=== PATIENT | male | born 1970 | race Caucasian/White ===

== ENCOUNTER 2016-07-19 20:21 | Inpatient (IN) | payer BC, OTHER ==
--- NOTE | 2016-07-19 21:28 | XR ---
EXAMINATION TYPE: XR chest 2V DATE OF EXAM: 07/19/2016 9:23 PM COMPARISON: 09/04/2015 HISTORY: Chest pain TECHNIQUE: Frontal and lateral views of the chest are obtained. FINDINGS: Heart and mediastinum are normal. Lungs are clear. Diaphragm is normal. There are chest le ads. IMPRESSION: Normal chest. No change.
[2016-07-19 21:41] LABS: ALT 55 U/L (21-72); AST 48 U/L (17-59); Alkaline Phosphatase 90 U/L (38-126); Anion Gap 13 mmol/L; Blood Urea Nitrogen 17 mg/dL (9-20); Calcium 9.5 mg/dL (8.4-10.2); Carbon Dioxide 23 mmol/L (22-30); Chloride 103 mmol/L (98-107); Glucose 99 mg/dL (74-99); Magnesium 2.2 mg/dL (1.6-2.3); Non-African American GFR(MDRD) >60 (>60 ml/min/1.73 sqM); Sodium 139 mmol/L (137-145); Total Bilirubin 1.6 mg/dL (0.2-1.3); Total Protein 7.5 g/dL (6.3-8.2)
[2016-07-19 21:42] LABS: Potassium 4.9 mmol/L (3.5-5.1)
[2016-07-19 21:46] LABS: Basophils % (A) 0 %; CH 34.8; CHCM 36.1; Eosinophils # (A) 0.1 k/uL (0-0.7); Eosinophils % (A) 2 %; HGB 15.8 gm/dL (13.0-17.5); Luc # (Auto) 0.06; Luc % (Auto) 1; Lymphocytes # (A) 1.6 k/uL (1.0-4.8); Lymphocytes % (A) 35 %; MCH 33.2 pg (25.0-35.0); MCHC 34.3 g/dL (31.0-37.0); MCV 96.7 fL (80.0-100.0); Mean Platelet Volume 8.2; Monocytes # (A) 0.3 k/uL (0-1.0); Monocytes % (A) 7 %; Neutrophils # (A) 2.5 k/uL (1.3-7.7); Neutrophils % (A) 55 %; RBC 4.76 m/uL (4.30-5.90); RDW 12.5 % (11.5-15.5); WBC 4.6 k/uL (3.8-10.6)
[2016-07-19 22:12] LABS: Creatine Kinase 126 U/L (55-170)
[2016-07-19 22:23] LABS: Creatine Kinase MB 0.6 ng/mL (0.0-2.4); Troponin I <0.012 ng/mL (0.000-0.034)
[2016-07-19 22:35] LABS: INR 1.1 (<1.1); Partial Thromboplastin Time 22.3 sec (22.0-30.0)
[2016-07-19] MEDS ORDERED: ASPIRIN 81 MG CHEW PO STA (22:45)
[2016-07-19] MEDS ORDERED: HEPARIN SODIUM,PORCINE 5,000 UNIT/ML 1 ML VIAL IV PRN ×2 (22:45→23:26)
[2016-07-19] MEDS ORDERED: HEPARIN SODIUM,PORCINE 5,000 UNIT/ML 1 ML VIAL IV ONE (22:45)
[2016-07-19] MEDS ORDERED: MORPHINE SULFATE 4 MG/ML SYRINGE IV PRN (22:45)
[2016-07-19] MEDS ORDERED: NITROGLYCERIN SL TABS 0.4 MG TAB SUBLINGUAL PRN (22:45)
--- NOTE | 2016-07-19 22:45 | ED ---
General Adult HPI - General Chief complaint: Chest Pain Stated complaint: Chest pain Time Seen by Provider: 07/19/16 21:34 Source: patient, RN notes reviewed, old records reviewed Mode of arrival: wheelchair Limitations: no limitations - History of Present Illness Initial comments: This is a 46-year-old male the ER for reevaluation chest pain. Patient has anterior chest pain with significant shortness of breath, heaviness. Patient's that he does have history of cardiac disease CAD with stents. Patient recently stopped taking Plavix. Patient did see his cardiology doctor within the last year. I did have stress test which he thinks is unremarkable. Patient denies chest pain cough or congestion. At this time. Patient's initial chest pain did have shortness of breath and diaphoresis, clamminess associated with it. Patient denies modifying factors for the symptoms that he had. Patient has taken nitro in the past for chest pain but did not a temperature today. Patient admits no travel history, no sick contacts, no recent hospitalizations - Related Data Home Medications Medication Instructions Recorded Confirmed traMADol HCL [Ultram] 50 mg PO BID 03/03/15 09/05/15 Aspirin EC [Ecotrin] 325 mg PO HS 09/04/15 09/05/15 Clopidogrel Bisulfate [Clopidogrel] 75 mg PO DAILY 09/04/15 09/05/15 Metoprolol Tartrate [Lopressor] 25 mg PO BID 09/04/15 09/05/15 Pantoprazole [Protonix] 40 mg PO DAILY 09/04/15 09/05/15 Atorvastatin [Lipitor] 80 mg PO HS 09/05/15 09/05/15 Cider Vinegar [Apple Cider Vinegar] 300 mg PO DAILY 09/05/15 09/05/15 Cinnamon Bark [Cinnamon] 500 mg PO DAILY 09/05/15 09/05/15 Cod Liver Oil 1 cap PO DAILY 09/05/15 09/05/15 Lisinopril [Zestril] 2.5 mg PO DAILY 09/05/15 09/05/15 Previous Rx's Medication Instructions Recorded Nitroglycerin Sl Tabs [Nitrostat] 0.4 mg SUBLINGUAL Q5M PRN #20 tab 03/05/15 Allergies Allergy/AdvReac Type Severity Reaction Status Date / Time No Known Allergies Allergy Verified 07/19/16 20:26 Review of Systems ROS Statement: Those systems with pertinent positive or pertinent negative responses have been documented in the HPI. ROS Other: All systems not noted in ROS Statement are negative. Past Medical History Past Medical History: Coronary Artery Disease (CAD), Myocardial Infarction (DE) , Rheumatoid Arthritis (RA) Additional Past Medical History / Comment(s): PEPTIC ULCERS Has partially torn meniscus in both knees Last Myocardial Infarction Date:: 03/03/15 History of Any Multi-Drug Resistant Organisms: None Reported Past Surgical History: Heart Catheterization With Stent Additional Past Surgical History / Comment(s): pastSTENT X2 and 03-16-15 had cath with had 3 stents to om and 1 stent to ramis. Past Anesthesia/Blood Transfusion Reactions: No Reported Reaction Date of Last Stent Placement:: 03/03/15 Past Psychological History: No Psychological Hx Reported Additional Psychological History / Comment(s): MILD DEPRESSION OVER RECENT MED PROBLEMS. 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 Smoking Status: Former smoker Past Alcohol Use History: Occasional Additional Past Alcohol Use History / Comment(s): started smoking at age 17 smoked 1ppd, quit -2014 Past Drug Use History: None Reported - Past Family History Father History Unknown: Yes Family Medical History: Coronary Artery Disease (CAD) Additional Family Medical History / Comment(s): DE AT AGE 27 Mother Family Medical History: Diabetes Mellitus General Exam Limitations: no limitations General appearance: alert, in no apparent distress, anxious Head exam: Present: atraumatic, normocephalic, normal inspection Eye exam: Present: normal appearance, PERRL, EOMI. Absent: scleral icterus, conjunctival injection, periorbital swelling ENT exam: Present: normal exam, mucous membranes moist Neck exam: Present: normal inspection. Absent: tenderness, meningismus, lymphadenopathy Respiratory exam: Present: normal lung sounds bilaterally. Absent: respiratory distress, wheezes, rales, rhonchi, stridor Cardiovascular Exam: Present: regular rate, normal rhythm, normal heart sounds. Absent: systolic murmur, diastolic murmur, rubs, gallop, clicks GI/Abdominal exam: Present: soft, normal bowel sounds. Absent: distended, tenderness, guarding, rebound, rigid Extremities exam: Present: normal inspection, full ROM, normal capillary refill. Absent: tenderness, pedal edema, joint swelling, calf tenderness Back exam: Present: normal inspection Neurological exam: Present: alert, oriented X3, CN II-XII intact Psychiatric exam: Present: normal affect, normal mood Skin exam: Present: warm, dry, intact, normal color. Absent: rash Course Vital Signs 07/19/16 07/19/16 07/19/16 20:24 20:30 22:00 Temperature 98.3 F Pulse Rate 70 65 Pulse Rate [ 78 [employer] Professional ] Respiratory 18 20 20 Rate Blood Pressure 141/94 148/82 O2 Sat by Pulse 98 95 Oximetry 07/19/16 22:23 Temperature Pulse Rate 76 Pulse Rate [ [employer] Professional ] Respiratory 18 Rate Blood Pressure 130/81 O2 Sat by Pulse 98 Oximetry - Reevaluation(s) Reevaluation #1: 07/19/16 22:43 Patient's diaphoresis and chest pain has subsided EKG Findings - EKG Comments: EKG Findings:: EKG shows normal sinus rate of 73, LA 152, QRS 90, QTC 403 Medical Decision Making - Medical Decision Making 46 male to the ER for chest pain, history of stents, diffuse status place the last 2 years. Patient did have associated shortness of breath with diaphoresis. No recent cardiac evaluation. Patient will be admitted for cardiac observation. Patient recently taken off Plavix, taking a little other medications as prescribed. Currently without chest pain, patient will be admitted for cardiac observation and initial EKG shows no ST elevation, patient will have serial troponins - Lab Data Result diagrams: 07/19/16 21:15 07/19/16 21:15 Lab Results 07/19/16 07/19/16 07/19/16 Range/Units 21:15 21:15 21:15 WBC 4.6 (3.8-10.6) k/uL RBC 4.76 (4.30-5.90) m/uL Hgb 15.8 (13.0-17.5) gm/dL Hct 46.0 (39.0-53.0) % MCV 96.7 (80.0-100.0) fL MCH 33.2 (25.0-35.0) pg MCHC 34.3 (31.0-37.0) g/dL RDW 12.5 (11.5-15.5) % Plt Count 106 L (150-450) k/uL Neutrophils % 55 % Lymphocytes % 35 % Monocytes % 7 % Eosinophils % 2 % Basophils % 0 % Neutrophils # 2.5 (1.3-7.7) k/uL Lymphocytes # 1.6 (1.0-4.8) k/uL Monocytes # 0.3 (0-1.0) k/uL Eosinophils # 0.1 (0-0.7) k/uL Basophils # 0.0 (0-0.2) k/uL PT (9.0-12.0) sec INR (<1.1) APTT (22.0-30.0) sec Sodium 139 (137-145) mmol/L Potassium 4.9 (3.5-5.1) mmol/L Chloride 103 (98-107) mmol/L Carbon Dioxide 23 (22-30) mmol/L Anion Gap 13 mmol/L BUN 17 (9-20) mg/dL Creatinine 0.77 (0.66-1.25) mg/dL Est GFR (MDRD) Af Amer >60 (>60 ml/min/1.73 sqM) Est GFR (MDRD) Non-Af >60 (>60 ml/min/1.73 sqM) Glucose 99 (74-99) mg/dL Calcium 9.5 (8.4-10.2) mg/dL Magnesium 2.2 (1.6-2.3) mg/dL Total Bilirubin 1.6 H (0.2-1.3) mg/dL AST 48 (17-59) U/L ALT 55 (21-72) U/L Alkaline Phosphatase 90 (38-126) U/L Total Creatine Kinase 126 (55-170) U/L CK-MB (CK-2) 0.6 (0.0-2.4) ng/mL CK-MB (CK-2) Rel Index 0.5 Troponin I <0.012 (0.000-0.034) ng/mL Total Protein 7.5 (6.3-8.2) g/dL Albumin 4.7 (3.5-5.0) g/dL 07/19/16 Range/Units 21:15 WBC (3.8-10.6) k/uL RBC (4.30-5.90) m/uL Hgb (13.0-17.5) gm/dL Hct (39.0-53.0) % MCV (80.0-100.0) fL MCH (25.0-35.0) pg MCHC (31.0-37.0) g/dL RDW (11.5-15.5) % Plt Count (150-450) k/uL Neutrophils % % Lymphocytes % % Monocytes % % Eosinophils % % Basophils % % Neutrophils # (1.3-7.7) k/uL Lymphocytes # (1.0-4.8) k/uL Monocytes # (0-1.0) k/uL Eosinophils # (0-0.7) k/uL Basophils # (0-0.2) k/uL PT 11.0 (9.0-12.0) sec INR 1.1 (<1.1) APTT 22.3 (22.0-30.0) sec Sodium (137-145) mmol/L Potassium (3.5-5.1) mmol/L Chloride (98-107) mmol/L Carbon Dioxide (22-30) mmol/L Anion Gap mmol/L BUN (9-20) mg/dL Creatinine (0.66-1.25) mg/dL Est GFR (MDRD) Af Amer (>60 ml/min/1.73 sqM) Est GFR (MDRD) Non-Af (>60 ml/min/1.73 sqM) Glucose (74-99) mg/dL Calcium (8.4-10.2) mg/dL Magnesium (1.6-2.3) mg/dL Total Bilirubin (0.2-1.3) mg/dL AST (17-59) U/L ALT (21-72) U/L Alkaline Phosphatase (38-126) U/L Total Creatine Kinase (55-170) U/L CK-MB (CK-2) (0.0-2.4) ng/mL CK-MB (CK-2) Rel Index Troponin I (0.000-0.034) ng/mL Total Protein (6.3-8.2) g/dL Albumin (3.5-5.0) g/dL - Radiology Data Radiology results: report reviewed (Chest x-ray negative for acute disease), image reviewed Critical Care Time Critical Care Time: Yes Total Critical Care Time: 31 Disposition Clinical Impression: Chest pain, Unstable angina pectoris Disposition: ADMITTED IP TO THIS HOSP Condition: Undetermined Referrals: Kamron Patel DO [Primary Care Provider] - 1-2 days
[2016-07-19] MEDS: HEPARIN SODIUM,PORCINE/D5W PMX 25,000 UNIT in DEXTROSE/WATER 1 500ML.BAG IV SCH (23:32)
[2016-07-20 01:11] VITALS: BMI 30.4
[2016-07-20 03:49] LABS: Creatine Kinase 82 U/L (55-170)
[2016-07-20 04:01] LABS: Creatine Kinase MB 0.5 ng/mL (0.0-2.4); Troponin I <0.012 ng/mL (0.000-0.034)
[2016-07-20 07:46] LABS: Cholesterol 118 mg/dL (<200); HDL Cholesterol 47 mg/dL (40-60); Triglycerides 105 mg/dL (<150)
[2016-07-20] MEDS ORDERED: ATORVASTATIN 80 MG TAB PO SCH (09:00)
[2016-07-20] MEDS ORDERED: NITROGLYCERIN SL TABS 0.4 MG TAB SUBLINGUAL PRN (09:03)
[2016-07-20] MEDS ORDERED: SODIUM CHLORIDE 0.9% 1,000 ML in EMPTY BAG 1 BAG IV ONE (09:03)
[2016-07-20] MEDS ORDERED: ALPRAZolam 0.25 MG TAB PO PRN (09:03)
[2016-07-20] MEDS ORDERED: ALPRAZolam 0.5 MG TAB PO PRN (09:03)
[2016-07-20] MEDS ORDERED: ASPIRIN 325 MG TAB PO STA (09:06)
[2016-07-20] MEDS ORDERED: ATORVASTATIN 80 MG TAB PO STA (09:06)
[2016-07-20] MEDS ORDERED: traMADol 50 MG TAB PO PRN (09:10)
[2016-07-20] MEDS ORDERED: NON-FORMULARY DRUG (Aspirin Ec 325 MG) PO SCH (09:15)
[2016-07-20] MEDS: LISINOPRIL 2.5 MG TAB PO SCH (10:14)
[2016-07-20] MEDS: METOPROLOL TARTRATE 12.5 MG TAB PO SCH ×2 (10:14→20:34)
[2016-07-20] MEDS: PANTOPRAZOLE 40 MG TABLET PO SCH (10:14)
[2016-07-20] MEDS: ASPIRIN 325 MG TAB PO SCH (10:14)
[2016-07-20 10:27] LABS: Creatine Kinase 75 U/L (55-170)
[2016-07-20 10:41] LABS: Creatine Kinase MB 0.5 ng/mL (0.0-2.4); Troponin I <0.012 ng/mL (0.000-0.034)
--- NOTE | 2016-07-20 10:55 | CONS ---
DATE OF CONSULTATION: CHIEF COMPLAINT: Chest pain. Antonio is a 46-year-old gentleman with a history of coronary artery disease, status post multivessel angioplasty, including right coronary artery, ramus intermedius and circumflex coronary artery who presented to the hospital complaining of chest pain. He describes it as a precordial chest pressure, moderate intensity with radiation to his back and left arm. It was associated with diaphoresis and palpitations. He was concerned and came into hospital. His EKG does not reveal ischemic changes. Rhythm strip shows sinus rhythm. Two sets of cardiac enzymes have been negative so far. Given his known multivessel coronary artery disease and symptomatology suggestive of unstable angina, I advised the patient to undergo cardiac catheterization. He had been explained of risks, benefits, and alternatives, understood and accepted. Past medical history is significant for coronary artery disease, status post angioplasty, hypertension, and dyslipidemia. Medications at home include Lipitor 80 daily, aspirin, Zestril 2.5 daily, metoprolol 12.5 b.i.d., Protonix and Ultram. ALLERGIES: Denies any. FAMILY HISTORY: Negative for premature coronary artery disease. SOCIAL HISTORY: Negative for current smoking, EtOH abuse, or drug abuse. REVIEW OF SYSTEMS: HEENT: Unremarkable. CARDIAC: As described above. RESPIRATORY: Negative. GI: Negative. GENITOURINARY: Negative. ALLERGY/IMMUNOLOGY: Negative. MUSCULOSKELETAL: Significant for arthritis. PSYCHOSOCIAL: Negative. ENDOCRINE: Negative. DERM: Negative. CONSTITUTIONAL: Negative. ONCOLOGICAL: Negative. The rest of the system review is not relevant. On exam, comfortable at rest. Vital signs are stable. There is no jugular venous distention. Carotid upstroke is normal. There is no bruit. Chest exam reveals good air entry bilaterally. Heart exam reveals first and second heart sounds. No gallop. Abdomen is soft. Exam of the extremities did not reveal any edema. Peripheral pulses are felt. EKG shows sinus rhythm, normal axis, normal intervals. Cardiac enzymes have been negative. Labs show that the troponins are negative. LDL cholesterol is 50. ASSESSMENT: Unstable angina in a patient with known coronary artery disease, status post multivessel angioplasty. PLAN: I lasted did cardiac catheterization in August 2015. At that time he had a 30% to 40% stenosis involving left anterior descending. Stents were patent in the right coronary artery, ramus intermedius and circumflex coronary artery. I advised him to undergo another cardiac catheterization. I reviewed his data including the EKGs, chest x-rays, labs and prior angioplasty data.
--- NOTE | 2016-07-20 13:35 | ECHOF ---
Referral Reason:[place] MEASUREMENTS -------- HEIGHT: 172.7 cm WEIGHT: 90.7 kg BP: 113/60 IVSd: 1.1 cm (0.6 - 1.1) LVIDd: 5.1 cm (3.9 - 5.3) LVPWd: 1.0 cm (0.6 - 1.1) LVIDs: 3.7 cm LA Diam: 3.4 cm (2.7 - 3.8) RVIDd: 3.2 cm (< 3.3) Ao Diam: 3.2 cm (2.0 - 3.7) AV Cusp: 2.3 cm (1.5 - 2.6) EPSS: 0.7 cm MV E Luis: 0.69 m/s MV DecT: 235 ms MV A Luis: 0.70 m/s MV E/A Ratio: 0.98 RAP: 5.00 mmHg RVSP: 20.59 mmHg MV EF SLOPE: 138.78 mm/s (70 - 150) MV EXCURSION: 19.20 mm (> 18.000) FINDINGS -------- Sinus rhythm. This was a technically good study. The left ventricular size is normal. There is borderline concentric left ventricular hypertrophy. Overall left ventricular systolic function is normal with, an EF between 60 - 65 %. The right ventricle is normal in size and function. The left atrium is normal in size. The right atrium is normal in size. The aortic valve is trileaflet and appears structurally normal. There is trace mitral regurgitation. Mild tricuspid regurgitation present. Right ventricular systolic pressure is normal at < 35 mmHg. The pulmonic valve was not well visualized. The aortic root size is normal. There is no pericardial effusion. CONCLUSIONS -------- 1. Sinus rhythm. 2. Mild tricuspid regurgitation present. 3. Right ventricular systolic pressure is normal at < 35 mmHg. 4. The pulmonic valve was not well visualized. 5. The aortic root size is normal. 6. There is no pericardial effusion. 7. This was a technically good study. 8. The left ventricular size is normal. 9. There is borderline concentric left ventricular hypertrophy. 10. Overall left ventricular systolic function is normal with, an EF between 60 - 65 %. 11. The right ventricle is normal in size and function. 12. The left atrium is normal in size. 13. The aortic valve is trileaflet and appears structurally normal. 14. There is trace mitral regurgitation. POMPOM MAKER: Deborah Blake RDCS
--- NOTE | 2016-07-20 17:00 | HP ---
DATE OF ADMISSION: A 46-year-old, came in with complaints of chest pain which is pressure-like sensation, which started yesterday, relieved by nitroglycerin about 5 to 6/10 in severity, radiating to the shoulder blades. Patient still has his gallbladder, not associated with food, associated with some diaphoresis and palpitations. Associated with some nausea. Denied any shortness of breath. EKG did not reveal any significant changes. Troponins are negative. Echocardiogram normal. Patient's chest pain is nonpleuritic in nature. Patient had a cardiac catheterization in the past which showed 30% to 40% blockages in some of the coronary vasculature because of which patient is going for cardiac catheterization tomorrow and patient denied any flulike symptoms. ROS: All Other systems were reviewed and were negative. Home medications include: 1. Tramadol. 2. Aspirin. 3. Plavix. 4. Metoprolol. 5. Pantoprazole. 6. Atorvastatin. 7. Lisinopril. 8. Nitroglycerin. ALLERGIES: No known drug allergies. PAST MEDICAL HISTORY: Coronary artery disease, rheumatoid arthritis in the past, hypertension, hyperlipidemia. Patient has had previous cardiac catheterization and stent placement in the past. SOCIAL HISTORY: Former smoker. Denied any alcohol abuse or any drug abuse. FAMILY HISTORY: Significant for coronary artery disease. Father had coronary artery disease. Mother had diabetes mellitus. PHYSICAL EXAMINATION: Temperature 98.7, pulse of 85, respiratory rate of 16, blood pressure is 114/67, saturating at 94% on room air. GENERAL: The patient is alert and oriented x3, not in any acute distress. Well developed, well nourished. HEENT: Pupils are round and equally reacting to light. EOMI. No scleral icterus. No conjunctival pallor. Normocephalic, atraumatic. No pharyngeal erythema. No thyromegaly. CARDIOVASCULAR: S1 and S2 present. No murmurs, rubs, or gallops. PULMONARY: Chest is clear to auscultation, no wheezing or crackles. ABDOMEN: Soft, nontender, nondistended, normoactive bowel sounds. No palpable organomegaly. MUSCULOSKELETAL: No joint swelling or deformity. EXTREMITIES: No cyanosis, clubbing, or pedal edema. NEUROLOGICAL: Gross neurological examination did not reveal any focal deficits. SKIN: No rashes. Patient's chest pain completely resolved at this point of time. LABORATORY DATA: CBC, CMP essentially within normal limits. Troponins are negative. EKG as mentioned above. Chest x-ray did not show any pneumonic process. ASSESSMENT AND PLAN: 1. Chest pain, rule out acute coronary artery syndrome and unstable angina. Patient is going for cardiac catheterization tomorrow concerning his previous echocardiogram. 2. Hypertension. 3. Hyperlipidemia. As his pain is radiating to the shoulders, between the shoulder blades, if cardiac cath is normal probably it is reasonable to get an ultrasound of the abdomen to make sure patient does not have cholelithiasis. I will do it tomorrow if cardiac cath is negative. Patient's primary care physician is Dr. Kamron Patel. ABBIE
[2016-07-20] MEDS: ATORVASTATIN 80 MG TAB PO SCH (20:34)
[2016-07-20 20:40] LABS: Glucose,Whole Blood 159 mg/dL (75-99)
[2016-07-20] MEDS: HEPARIN SODIUM,PORCINE/D5W PMX 25,000 UNIT in DEXTROSE/WATER 1 500ML.BAG IV SCH (21:31)
[2016-07-21] MEDS ORDERED: ATORVASTATIN 80 MG TAB PO ONE (06:00)
[2016-07-21] MEDS ORDERED: SODIUM CHLORIDE 0.9% 1,000 ML in EMPTY BAG 1 BAG IV ONE (06:00)
[2016-07-21] MEDS ORDERED: ASPIRIN 81 MG CHEW PO ONE (06:00)
[2016-07-21] MEDS ORDERED: ASPIRIN 325 MG TAB PO ONE (06:00)
[2016-07-21] MEDS: METOPROLOL TARTRATE 12.5 MG TAB PO SCH ×2 (07:30→21:08)
[2016-07-21] MEDS: PANTOPRAZOLE 40 MG TABLET PO SCH (07:30)
[2016-07-21] MEDS: LISINOPRIL 2.5 MG TAB PO SCH (07:32)
[2016-07-21] MEDS: ASPIRIN 325 MG TAB PO SCH (11:14)
--- NOTE | 2016-07-21 14:03 | US ---
EXAMINATION TYPE: US gallbladder DATE OF EXAM: 07/21/2016 1:11 PM COMPARISON: NONE CLINICAL HISTORY: r/o Cholelithiasis. Pain EXAM MEASUREMENTS: Liver Length: 15.7 cm Gallbladder Wall: 0.2 cm CBD: 0.4 cm Right Kidney: 12.1 x 5.8 x 6.5 cm TECHNOLOGIST IMPRESSION: 2 small liver cysts: left lobe 1.4 x 1.3 x 1.6 cm, right lobe 1.5 x 1.0 x 1.0 cm Pancreas: Obscured by bowel gas Liver: cysts as noted above Gallbladder: No stones seen Evidence for sonographic Bermudez's sign: no CBD: wnl Right Kidney: No hydronephrosis or masses seen IMPRESSION: MULTIPLE HEPATIC CYSTS.
--- NOTE | 2016-07-21 15:24 | PN ---
46-year-old gentleman with known coronary artery disease admitted to hospital with unstable angina was to undergo cardiac catheterization today but because of scheduling issues, we were not able to do it today. We will reschedule it for tomorrow. He is pain free and hemodynamically stable and on appropriate medical therapy. On exam, comfortable at rest. Vital signs are stable. There is no jugular venous distention. Chest exam reveals good air entry bilaterally. Heart exam reveals first and second heart sounds. No gallop. Exam of extremities did not reveal any edema. Peripheral pulses are felt. ASSESSMENT: Unstable angina in a patient with known coronary artery disease, status post multivessel angioplasty. PLAN: He will undergo invasive angiography tomorrow morning.
[2016-07-22] MEDS: HEPARIN SODIUM,PORCINE/D5W PMX 25,000 UNIT in DEXTROSE/WATER 1 500ML.BAG IV SCH (05:27)
[2016-07-22 07:52] LABS: Mean Platelet Volume 7.7
[2016-07-22] MEDS: PANTOPRAZOLE 40 MG TABLET PO SCH (08:24)
[2016-07-22] MEDS: ASPIRIN 325 MG TAB PO SCH (08:24)
[2016-07-22] MEDS: LISINOPRIL 2.5 MG TAB PO SCH (08:25)
[2016-07-22] MEDS: METOPROLOL TARTRATE 12.5 MG TAB PO SCH ×2 (08:25→20:04)
[2016-07-22] MEDS ORDERED: ATORVASTATIN 80 MG TAB PO STA (08:27)
[2016-07-22] MEDS ORDERED: LIDOCAINE 2% INJ 20 MG/ML (20 ML MDV) ONE (09:12)
[2016-07-22] MEDS ORDERED: IV FLUID CONTINUATION 650 ML IV ONE (09:25)
[2016-07-22] MEDS ORDERED: diphenhydrAMINE 50 MG/ML 1 ML VIAL ONE (09:29)
[2016-07-22] MEDS ORDERED: MIDAZOLAM 2 MG/2 ML VIAL ONE (09:29)
[2016-07-22] MEDS ORDERED: MIDAZOLAM 2 MG/2 ML VIAL IV ONE (09:32)
[2016-07-22] MEDS ORDERED: diphenhydrAMINE 50 MG/ML 1 ML VIAL IVP ONE (09:33)
[2016-07-22] MEDS ORDERED: LIDOCAINE 2% INJ 20 MG/ML SQ ONE (09:35)
[2016-07-22] MEDS ORDERED: fentaNYL (PF) 50 MCG/ML 2 ML AMP ONE (09:52)
[2016-07-22] MEDS: fentaNYL (PF) 50 MCG/ML 2 ML AMP IV ONE ×2 (09:54→11:27)
--- NOTE | 2016-07-22 10:37 | CC ---
DATE OF SERVICE: INDICATION: Unstable angina. PROCEDURE NOTE: After obtaining informed consent, left heart catheterization and coronary angiogram were performed via the right femoral artery using standard Franny catheters. Patient tolerated the procedure well without any immediate without any obvious complications. Femoral angiogram was performed at the end of the procedure. FINDINGS: 1. HEMODYNAMICS: Left ventricular end-diastolic pressure was 8 to 12 mm. There is no significant gradient across the aortic valve. 2. LEFT VENTRICULOGRAM: Left ventriculogram was not performed. 3. ANGIOGRAPHIC DATA: Left Main Coronary Artery: Left main coronary artery is a normal size vessel and is free of stenosis. It divides into left anterior descending coronary artery, ramus intermedius and circumflex coronary artery. The previously stented circumflex coronary artery appears patent. Ramus also appears normal. LAD shows some moderate stenosis in its mid portion, maybe somewhat worse compared to a previous cardiac catheterization in August 2015. Right coronary artery is a large dominant vessel and is free of significant disease. CONCLUSIONS: 1. Patent stents within the right coronary artery, ramus intermedius and circumflex coronary artery. 2. A 40% to 50% stenosis involving mid left anterior descending coronary artery. PLAN: I am going to have Dr. Zainab Araiza review the angiographic data to see if we need to perform an FFR of the LAD.
[2016-07-22] MEDS ORDERED: BIVALIRUDIN BOLUS 250 MG/50 ML IV ONE (11:01)
[2016-07-22] MEDS ORDERED: BIVALIRUDIN 250 MG in SODIUM CHLORIDE 0.9% 50 ML IV ONE (11:02)
[2016-07-22] MEDS ORDERED: NITROGLYCERIN 1000MCG/10ML SYRINGE INTRACORON ONE (11:21)
[2016-07-22] MEDS ORDERED: IOHEXOL 350 MG/ML 100 ML BOTTLE INJ ONE (11:23)
[2016-07-22] MEDS ORDERED: CLOPIDOGREL 75 MG TAB ONE (11:32)
[2016-07-22] MEDS ORDERED: ASPIRIN 81 MG CHEW PO SCH (11:34)
[2016-07-22] MEDS ORDERED: ATROPINE SULFATE 0.1 MG/ML 10ML SYRINGE IV PRN (11:35)
[2016-07-22] MEDS ORDERED: RX INFO: IV CONTRAST WAS GIVEN 1 EACH MISC MISCELLANE PRN (11:35)
[2016-07-22] MEDS ORDERED: MAG HYDROX/AL HYDROX/SIMETH 30 ML CUP PO PRN (11:35)
[2016-07-22] MEDS ORDERED: ZOLPIDEM 5 MG TAB PO PRN (11:35)
[2016-07-22] MEDS ORDERED: NITROGLYCERIN SL TABS 0.4 MG TAB SUBLINGUAL PRN (11:35)
[2016-07-22] MEDS ORDERED: CLOPIDOGREL 75 MG TAB PO ONE (11:37)
--- NOTE | 2016-07-22 12:42 | DS ---
This dictation is both Progress Note and Discharge Summary. DATE OF ADMISSION: 07/19/2016 DATE OF DISCHARGE: Patient came in with chest pain. Patient is undergoing cardiac catheterization. If has patient has clean coronaries, patient will be discharge. I have a small concern about cholelithiasis, because of which I obtained an ultrasound which showed some incidental finding of hepatic cyst which can be further imaged in about 3 to 6 months. No further intervention is necessary at this point of time. REVIEW OF SYSTEMS: CARDIOVASCULAR: No chest pain, no orthopnea, no PND, no palpitations. PULMONARY: Improved chest pain, but she still has a little bit of pain in the chest area. GASTROINTESTINAL: No diarrhea, nausea or vomiting. No abdominal pain. Normoactive bowel sounds. NEUROLOGIC: No headaches, no weakness, no numbness. Medications were reviewed. PHYSICAL EXAMINATION: Temperature 98.4, pulse of 69, respiratory rate of 18, blood pressure is 96/51, saturating at 98% on room air. GENERAL: The patient is alert and oriented x3, not in any acute distress. Well developed, well nourished. HEENT: Pupils are round and equally reacting to light. EOMI. No scleral icterus. No conjunctival pallor. Normocephalic, atraumatic. No pharyngeal erythema. No thyromegaly. CARDIOVASCULAR: S1 and S2 present. No murmurs, rubs, or gallops. PULMONARY: Chest is clear to auscultation, no wheezing or crackles. ABDOMEN: Soft, nontender, nondistended, normoactive bowel sounds. No palpable organomegaly. MUSCULOSKELETAL: No joint swelling or deformity. EXTREMITIES: No cyanosis, clubbing, or pedal edema. NEUROLOGICAL: Gross neurological examination did not reveal any focal deficits. SKIN: No rashes. LABORATORY DATA: CBC, CMP essentially within normal limits. Patient has low normal blood pressures because of which his lisinopril will be discontinued. ASSESSMENT AND PLAN: 1. Chest pain, management as mentioned above. 2. Hypertension. 3. Hyperlipidemia. DISCHARGE DIET: Cardiac. Activity as tolerated. Follow up with Dr. Kamron Ptael in 3 to 5 days. Follow up with Dr. Machado as scheduled. Patient will be discharged if his cardiac cath is within normal limits.
[2016-07-22] MEDS: SODIUM CHLORIDE 0.9% 1,000 ML IV SCH (14:04)
--- NOTE | 2016-07-22 17:44 | P.PN ---
Subjective Date of service 07/22/2016. Progress note being dictated for Dr. Haywood. Interval history: This a 46-year-old gentleman admitted with chest pain , status post cardiac cath. Reporting 40-50% stenosis involving the mid LAD. Status post angioplasty with 1 stent to the proximal mid LAD per verbal report. Ambulating in the dc, tolerating increase in exertion well. Denies any chest pain, palpitations or increasing shortness of breath. Telemetry sinus rhythm. Objective - Vital Signs Vital signs: Vital Signs Temp 97.4 F L 07/22/16 16:20 Pulse 86 07/22/16 16:20 Resp 18 07/22/16 16:20 BP 119/72 07/22/16 16:20 Pulse Ox 94 L 07/22/16 16:20 - Exam PHYSICAL EXAM: VITAL SIGNS: As above GENERAL: [Sitting up in bed, no acute distress] HEENT: [Pupils equal conjunctiva normal.] NECK: [Supple, no JVD] RESPIRATORY EFFORT:[Normal] LUNGS: [Clear, no wheezes crackles or rhonchi] CARDIOVASCULAR[regular S1 and S2, no murmurs rubs or gallops, no edema] GI: [Abdomen soft, nontender, positive bowel sounds.] PSYCH: [Alert and oriented -3, mood and affect normal.] NEURO: No focal deficits, moves all 4 extremities, strength and sensation grossly intact - Labs CBC & Chem 7: 07/22/16 07:26 07/19/16 21:15 Assessment and Plan Plan: 1. Chest pain, unstable angina in a patient with history of CAD ,status post cardiac cath, angioplasty with stent to the proximal mid LAD. 2. [Hypertension]. 3. [Hyperlipidemia]. Plan: Continue on current medication regime ,monitoring and symptomatic treatment. Discharge planning in progress for tomorrow pending clearance from cardiology. Further recommendations to follow. The impression and plan of care has been dictated as directed. : I performed a H&P examination of this patient and discussed the same with the dictator. I agree with the dictator's note. Any additional findings/opinions/ etc. will be noted.
[2016-07-22 19:53] VITALS: RESP 18
[2016-07-22] MEDS: ATORVASTATIN 80 MG TAB PO SCH (19:55)
--- NOTE | 2016-07-22 21:59 | PTCA ---
DATE OF SERVICE: 07/22/2016 PROCEDURE: Percutaneous transluminal coronary angioplasty and stenting of mid left anterior descending coronary artery. PERFORMED BY: Dr. Zainab Araiza. CLINICAL INFORMATION: Mr. Antonio Akhtar is a 46-year-old gentleman who underwent stenting of RCA in the setting of an acute DE in February 2015. In March I performed stenting of ramus as well as an obtuse marginal branch with a good result. He presented with unstable angina and now has a lesion in the mid LAD just beyond the septal branch. This is a very eccentric lesion, best seen in the RWANDAN cranial projection, and the lesion is at least 70% to 75%. He was advised intervention after reviewing the angiogram. PROCEDURE NOTE: Existing 6 [place] introducer in the right femoral artery was used to perform the procedure. I used a JL3.5 curved catheter to cannulate the left coronary artery. A BMW wire was used to cross the lesion. Predilatation was performed using a 12 mm long, 2.5 caliber Trek balloon. I performed stenting of this site with a 2.75 caliber, 12 mm long Xience stent, with excellent angiographic result. Patient had chest pain and very subtle ST elevation in leads V1 to V3. Excellent angiographic result was achieved without complication. I gave him 600 mg of Plavix and he also received Angiomax bolus and infusion as per protocol. The sheath was then taken out and a Perclose device used to secure hemostasis. He was sent to the room in stable condition. Results were discussed with the patient, but no family was available. Excellent angiographic result without complication was achieved. Mid LAD was dilated with a drug-eluting stent. His previously stented RCA and circumflex vessels were widely patent. I expect he will be discharged soon.
--- NOTE | 2016-07-22 22:01 | LTR ---
July 22, 2016 RE: Antonio Akhtar Dear Dr. Patel, Thank you for the opportunity to participate in the care of Mr. Antonio Akhtar. I am pleased to report to you that his previously stented circumflex and RCA were patent. I performed stenting of his LAD with a good angiographic result. I expect that he will be discharged in the next 24 to 48 hours if he remains stable. Thank you for the referral. Please call with questions. Sincerely, REYES SORENSEN MD
[2016-07-23 04:34] VITALS: TEMP 97.6
[2016-07-23] MEDS: SODIUM CHLORIDE 0.9% 1,000 ML IV SCH (04:52)
[2016-07-23] MEDS: PANTOPRAZOLE 40 MG TABLET PO SCH (06:05)
[2016-07-23 06:35] LABS: Basophils % (A) 0 %; CH 34.4; Eosinophils # (A) 0.1 k/uL (0-0.7); Eosinophils % (A) 2 %; HCT 44.7 % (39.0-53.0); HDW 2.57; Luc # (Auto) 0.08; Luc % (Auto) 2; Lymphocytes % (A) 18 %; MCH 33.2 pg (25.0-35.0); MCHC 33.6 g/dL (31.0-37.0); MCV 98.7 fL (80.0-100.0); Monocytes # (A) 0.4 k/uL (0-1.0); Monocytes % (A) 7 %; Neutrophils # (A) 3.8 k/uL (1.3-7.7); Neutrophils % (A) 71 %; RBC 4.53 m/uL (4.30-5.90); RDW 12.5 % (11.5-15.5); WBC 5.3 k/uL (3.8-10.6); WBC (Perox) 5.46
[2016-07-23 06:51] LABS: Anion Gap 9 mmol/L; Blood Urea Nitrogen 14 mg/dL (9-20); Calcium 9.4 mg/dL (8.4-10.2); Carbon Dioxide 26 mmol/L (22-30); Chloride 106 mmol/L (98-107); Glucose 101 mg/dL (74-99); Non-African American GFR(MDRD) >60 (>60 ml/min/1.73 sqM); Potassium 4.3 mmol/L (3.5-5.1); Sodium 141 mmol/L (137-145)
[2016-07-23] MEDS: LISINOPRIL 2.5 MG TAB PO SCH (07:58)
[2016-07-23] MEDS: METOPROLOL TARTRATE 12.5 MG TAB PO SCH (07:58)
[2016-07-23 08:07] VITALS: BP 126/69; PULSE 72
--- NOTE | 2016-07-23 11:31 | P.PN ---
Subjective Principal diagnosis: Chest pain This is a pleasant 46-year-old gentleman with known history of coronary artery disease and prior multivessel PCI, who presented to the hospital with symptoms of chest discomfort. He was taken to the cardiac catheterization lab yesterday by Dr. Green and subsequently underwent angioplasty with LAD stent placement. Patient was seen and examined this morning, denies any chest pain or difficulty in breathing. He's been up ambulating without any difficulty. EKG shows normal sinus rhythm with no changes from post-PCI. CBC and lytes BUN and creatinine within normal limits. From cardiology's perspective, patient should be able to be discharged home today to follow-up with Dr. Green in the office in 2 weeks. Objective - Vital Signs Vital signs: Vital Signs Temp 97.6 F 07/23/16 08:00 Pulse 72 07/23/16 08:00 Resp 18 07/23/16 08:00 BP 126/69 07/23/16 08:00 Pulse Ox 95 07/23/16 09:20 Intake & Output 07/22/16 07/23/16 07/23/16 18:59 06:59 18:59 Intake Total 240 320 Balance 240 320 Weight 86.5 kg Intake: Oral 240 320 Other: Voiding Method Toilet Toilet - Exam PHYSICAL EXAMINATION: HEENT: Head is atraumatic, normocephalic. Pupils equal, round. Neck is supple. There is no elevated jugular venous pressure. HEART EXAMINATION: Heart S1, S2 normal. No murmur or gallop heard. CHEST EXAMINATION: Lungs are clear to auscultation and precussion. No chest wall tenderness is noted on palpation or with deep breathing. ABDOMEN: Soft, nontender. Bowel sounds are heard. No organomegaly noted. Right groin soft, no evidence of any hematoma. EXTREMITIES: 2+ peripheral pulses with no evidence of peripheral edema and no calf tenderness noted. NEUROLOGIC patient is awake, alert and oriented -3. . - Labs CBC & Chem 7: 07/23/16 05:25 07/23/16 05:25 Labs: Abnormal Lab Results - Last 24 Hours (Table) 07/23/16 Range/Units 05:25 Glucose 101 H (74-99) mg/dL Assessment and Plan (1) Presence of stent in LAD coronary artery Status: Acute (2) HTN (hypertension) Status: Acute (3) Hyperlipemia Status: Acute (4) CAD (coronary artery disease) Status: Acute (5) Chest pain Status: Acute Plan: From cardiology's perspective, patient may be able to be discharged home today. We will make him a follow-up appointment to see Dr. Machado in the office in 2 weeks. Patient will be discharged home on aspirin 81 mg daily, Lipitor 80 mg daily, Plavix 75 mg daily, lisinopril 2-1/2 mg daily, metoprolol tartrate half milligrams one tablet by mouth twice a day and sublingual nitroglycerin as needed for chest pain. Patient has been educated regarding his medication, prescriptions have been provided for all of the above medications. DNP note has been reviewed, I agree with a documented findings and plan of care. Patient was seen and examined.
[2016-07-23] MEDS ORDERED: CLOPIDOGREL 75 MG TAB PO SCH (11:36)
--- NOTE | 2016-07-24 07:50 | DS ---
DATE OF ADMISSION: 07/22/2016 DATE OF DISCHARGE: 07/23/2016 FINAL DIAGNOSES: 1. Chest pain with possible angina, status post cardiac catheterization and stent to the proximal left anterior descending. 2. Hypertension. 3. Hyperlipidemia. 4. Heparin monitoring. 5. Increased random blood sugar. 6. Two small liver cysts in the left lobe 1.4 x1.3 x1.6 cm, right lobe 1.5 x 1 x 1 cm and with multiple hepatic cysts. 7. FULL CODE. DISCHARGE DISPOSITION: The patient will be discharged in a stable condition with guarded prognosis. Total time taken 35 minutes. HISTORY OF PRESENT ILLNESS: This 46-year-old gentleman admitted with chest pain and unstable angina. The patient underwent cardiac catheterization and stenting. Patient improved significantly. The patient was monitored closely. The patient also hepatic cyst in the ultrasound, recommended close outpatient followup. On admission, the total bilirubin was 1.6. Also recommend close outpatient followup. On exam, vitals are stable. CARDIOVASCULAR: S1, S2, muffled. ABDOMEN: Soft. NERVOUS SYSTEMS: No focal deficits. DISCHARGE ADVICE: 1. Diet is cardiac. 2. Activity limited until followup. 3. Follow up with Digna Singh in [place] in 2 to 3 days. 4. Follow up with Dr. Machado as advised. 5. Follow up liver functions in the outpatient setting and possibly liver ultrasound in 6 months to 1 year to ensure stability. The medications are: 1. Aspirin 81 mg p.o. daily. 2. Lipitor 80 mg q.h.s. 3. Cider vinegar 300 mg p.o. q.h.s. 4. Cinnamon 500 mg p.o. q.h.s. 5. Plavix 75 mg p.o. daily. 6. Cod liver oil 1 capsule q.h.s. 7. Zestril 2.5 mg p.o. daily. 8. Lopressor 12.5 mg p.o. b.i.d. 9. Nitrostat 0.4 sublingual p.r.n. 10. Protonix 40 mg p.o. daily. 11. Ultram 50 mg p.o. b.i.d.
== END 2016-07-23 11:46 | disposition home or self-care (01) | DRG 247 ==
LOC: EC 20:21 → 3OBS 22:45 → 6SEL 07-22 13:16 → OBSVTOIN 07-22 15:37
PROVIDERS: ADMIT Hospitalist; ATTEND Hospitalist
PROC: B2111ZZ Fluoroscopy of Multiple Coronary Arteries using Low Osmolar Contrast (ICD-10-PCS; 2016-07-22)
PROC: 4A023N7 Measurement of Cardiac Sampling and Pressure, Left Heart, Percutaneous Approach (ICD-10-PCS; principal; 2016-07-22 09:25)
PROC: 027034Z Dilation of Coronary Artery, One Artery with Drug-eluting Intraluminal Device, Percutaneous Approach (ICD-10-PCS; 2016-07-22 09:25)
DX: I25.110 Atherosclerotic heart disease of native coronary artery with unstable angina pectoris (principal); K76.89 Other specified diseases of liver; I10 Essential (primary) hypertension; E78.5 Hyperlipidemia, unspecified; M06.9 Rheumatoid arthritis, unspecified; I25.2 Old myocardial infarction; Z79.02 Long term (current) use of antithrombotics/antiplatelets; Z79.82 Long term (current) use of aspirin; Z82.49 Family history of ischemic heart disease and other diseases of the circulatory system; Z87.11 Personal history of peptic ulcer disease; Z87.891 Personal history of nicotine dependence
CPT/HCPCS: 36415; 71020; 76705; 80048; 80053; 80061; 82550; 82553; 83735; 84484; 85025; 85049; 85610; 85730; 93005; 93306; 93458; 94760; 96365; 96366; 96376; 99291

== ENCOUNTER → 2017-07-13 | Outpatient (CLI) | payer OTHER ==
--- NOTE | 2017-07-13 08:05 | US ---
EXAMINATION TYPE: US liver DATE OF EXAM: 07/13/2017 COMPARISON: NONE CLINICAL HISTORY: Hepatic cyst Q44.6. EXAM MEASUREMENTS: Liver Length: 14.8 cm Gallbladder Wall: 0.2 cm CBD: 0.3 cm Right Kidney: 11.5 x 5.0 x 5.8 cm Pancreas: not seen due to bowel gas Liver: two cystic areas noted within liver, largest within left lobe = 1.2cm Gallbladder: fold seen Evidence for sonographic Bermudez's sign: no CBD: wnl Right Kidney: wnl Pancreas is suboptimally evaluated on images saved. Visualized liver is heterogeneous without intrahe patic ductal dilatation. Evaluation for focal masses is suboptimal due to the heterogeneity. Technolo gist zelaya 2 hypoechoic anechoic lesions probable thin-walled cysts but too small to definitively katelyn racterize as measure 1.2 cm or smaller in size IMPRESSION: Two nonspecific small intrahepatic lesions favor thin-walled cysts.
== END | disposition home or self-care (01) ==
LOC: RADUSWWP 06:50
PROVIDERS: ATTEND Family Medicine
DX: K76.9 Liver disease, unspecified (principal)
CPT/HCPCS: 76705

== ENCOUNTER → 2018-02-15 | Outpatient (CLI) | payer OTHER ==
[2018-02-15 12:52] VITALS: BP 133/96; PULSE 85; RESP 18; TEMP 98.3
--- NOTE | 2018-02-15 13:33 | P.CONS ---
History of Present Illness - Reason for Consult Consult date: 02/15/18 - Chief Complaint Neck and right arm pain - History of Present Illness This is a 47-year-old gentleman with a significant history of coronary artery disease status post multiple coronary stents placement the last one was in July 2016. The patient has been on Plavix. He complains of neck pain that started 2 years ago with no precipitating events. The pain radiates down his right arm to the elbow level with numbness and tingling down to the L4 to. He denies any weakness in the upper or lower extremities or any bowel or bladder dysfunction. This pain occasionally wakes him up at night. 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 The patient also has lower back pain for which he just took Medrol Dosepak which also improved his neck pain. He had an MRI on the cervical spine in December 2017 which showed large disc osteophyte complex at the C5-C6 level with moderate to severe bilateral neuroforaminal stenosis. Past Medical History Past Medical History: Coronary Artery Disease (CAD), Myocardial Infarction ([place]) , Rheumatoid Arthritis (RA) Additional Past Medical History / Comment(s): PEPTIC ULCERS Has partially torn meniscus in both knees Last Myocardial Infarction Date:: 03/03/15 History of Any Multi-Drug Resistant Organisms: None Reported Past Surgical History: Heart Catheterization With Stent Additional Past Surgical History / Comment(s): pt has 6 stents involving the RCA , remus intermedius and circ. Past Anesthesia/Blood Transfusion Reactions: No Reported Reaction Date of Last Stent Placement:: 03/12/2015 Past Psychological History: No Psychological Hx Reported Additional Psychological History / Comment(s): MILD DEPRESSION OVER RECENT MED PROBLEMS. 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 Smoking Status: Former smoker Past Alcohol Use History: Occasional Additional Past Alcohol Use History / Comment(s): started smoking at age 17 smoked 1ppd, quit 2-2014 Past Drug Use History: None Reported - Past Family History Father History Unknown: Yes Family Medical History: Coronary Artery Disease (CAD) Additional Family Medical History / Comment(s): NV AT AGE 27 Mother Family Medical History: Diabetes Mellitus Medications and Allergies Home Medications Medication Instructions Recorded Confirmed Type traMADol HCL [Ultram] 50 mg PO BID PRN 03/03/15 02/15/18 History Pantoprazole [Protonix] 40 mg PO DAILY 09/04/15 02/15/18 History Cider Vinegar [Apple Cider Vinegar] 300 mg PO HS 09/05/15 02/15/18 History Aspirin 81 mg PO DAILY #30 chew 07/23/16 02/15/18 Rx Atorvastatin [Lipitor] 80 mg PO HS #30 tab 07/23/16 02/15/18 Rx Clopidogrel [Plavix] 75 mg PO DAILY #303 tab 07/23/16 02/15/18 Rx Lisinopril [Zestril] 2.5 mg PO DAILY #30 tab 07/23/16 02/15/18 Rx Metoprolol Tartrate [Lopressor] 12.5 mg PO BID #60 tab 07/23/16 02/15/18 Rx Nitroglycerin Sl Tabs [Nitrostat] 0.4 mg SUBLINGUAL Q5M PRN #25 tab 07/23/1603/25 Rx Ubidecarenone [Co Q-10] 100 mg PO DAILY 02/15/18 02/15/18 History Allergies Allergy/AdvReac Type Severity Reaction Status Date / Time No Known Allergies Allergy Verified 02/15/18 12:36 Physical Exam Vitals: Vital Signs Temp Pulse Resp BP Pulse Ox 02/15/18 12:41 98.3 F 85 18 133/96 94 L Intake and Output 02/14/18 02/15/18 02/15/18 22:59 06:59 14:59 Other: Weight 89.358 kg - Constitutional General appearance: average body habitus - EENT Eyes: PERRLA - Neurologic Neurologic: CNII-XII intact - Musculoskeletal Neuro exam of the upper extremities showed normal and symmetrical muscle strength however he has no reflexes in the upper extremities bilaterally and symmetrically. He has normal range of motion of the cervical spine Positive tenderness in the cervical paravertebral area more on the right side of the spine on the left side. - Psychiatric Psychiatric: A&O x's 3, appropriate affect, intact judgment & insight Assessment and Plan Plan: 47-year-old gentleman with significant history of coronary artery disease with Plavix treatment and cervical radiculopathy and spondylosis without myelopathy. The patient may benefit from getting cervical epidural steroid injection under fluoroscopic guidance. The procedure was explained to the patient including possible complications and he was agreeable to it.
== END | disposition home or self-care (01) ==
LOC: PNWHC3 11:30
PROVIDERS: ATTEND Anesthesiology
DX: M47.22 Other spondylosis with radiculopathy, cervical region (principal); I25.10 Atherosclerotic heart disease of native coronary artery without angina pectoris; Z79.02 Long term (current) use of antithrombotics/antiplatelets; Z79.82 Long term (current) use of aspirin; Z79.899 Other long term (current) drug therapy; Z87.891 Personal history of nicotine dependence
CPT/HCPCS: 99211

== ENCOUNTER 2018-03-15 09:24 | Day surgery (SDC) | payer OTHER ==
[2018-03-12 08:24] VITALS: BMI 29.6
[~2018-03-15 09:24] MED LIST: LACTATED RINGERS 1,000 ML IV SCH
[2018-03-15 09:38] VITALS: TEMP 97.2
[2018-03-15] MEDS ORDERED: LIDOCAINE 1% 20 ML VIAL (10MG/ML) FOR IV START INTRADERMA ONE (09:51)
--- NOTE | 2018-03-15 10:57 | P.PCN ---
Date of Procedure: 03/15/18 Surgeon: Lashawn Swenson Pathology: none sent Condition: stable Disposition: PACU Description of Procedure: PROCEDURE 1. Cervical epidural steroid injection under fluoroscopic guidance, C7-T1 right paramedian approach. 2. Cervical epidurogram. : PREOPERATIVE DIAGNOSIS: Cervical radiculopathy, cervical spondylosis without myelopathy POSTOPERATIVE DIAGNOSIS: : Same as above ANESTHESIA: Local anesthesia with 1% lidocaine and IV moderate conscious sedation with Versed and Fentanyl . EBL negligible PROCEDURE INDICATION: The patient with neck pain and radiculopathy unresponsive to conservative treatment consents for procedure. PROCEDURE DESCRIPTION / TECHNIQUE: The patient was seen and identified in the preoperative area. Risks, benefits, complications, including but not limited to infections ,bleeding , allergic reactions to the medications ,and not complete pain relief, and alternatives were discussed with the patient, the patient agreed to proceed with the procedure and signed the consent. Patient was taken to the OR and time out was completed. The patient was placed in the prone position on the procedure table. A pillow was placed under the patients chest to increase the flexion of the cervical spine . The cervical area was prepped and draped in the usual sterile fashion. Vital signs were closely monitored during the procedure. Conscious sedation was used during the procedure to decrease patients anxiety. Using anterior-posterior fluoroscopy, the C7-T1 interlaminar space was identified and the skin over this site was marked and then infiltrated with 1% lidocaine subcutaneously. Subsequently, a 20-gauge 3-1/2-inch Tuohy epidural needle was inserted and advanced toward the epidural space in the right paramedian approach by means of loss of resistance to air technique and guided by AP and lateral fluoroscopy. The needle tip contacted the lamina of T1 vertebra first, then it was walked off the bone and into the epidural space using the loss of to air and fluoroscopic guidance to identify the epidural space. The correct needle position in the epidural space was verified with the injection of 1 mL of the water soluble contrast dye Isovue and observing an excellent epidurogram with the epidural spread of the dye, after negative aspiration for blood and CSF and in the absence of paresthesias. Again after negative aspiration, a 5 ml mixture containing 10 mg of Decadron and 4 ml of preservative free Normal Saline solution was injected and a washout of epidurogram was seen. Needle was withdrawn intact, skin was cleansed, and bandages were applied.
--- NOTE | 2018-03-15 11:04 | FL ---
Fluoroscopy INDICATION: Pain FINDINGS: Fluoroscopy time: 8 seconds. Images obtained: 1. IMPRESSIONS: 1. Documentation of fluoroscopy.
[2018-03-15] MEDS ORDERED: IV FLUID CONTINUATION 1,000 ML IV ONE (11:25)
[2018-03-15 12:03] VITALS: BP 99/62; PULSE 75; RESP 18
== END 2018-03-15 12:26 | disposition home or self-care (01) ==
LOC: ORPAIN 09:24
PROVIDERS: ATTEND Anesthesiology
DX: M47.22 Other spondylosis with radiculopathy, cervical region (principal); I25.10 Atherosclerotic heart disease of native coronary artery without angina pectoris; I25.2 Old myocardial infarction; M06.9 Rheumatoid arthritis, unspecified; Z95.5 Presence of coronary angioplasty implant and graft; Z87.891 Personal history of nicotine dependence; Z79.02 Long term (current) use of antithrombotics/antiplatelets; Z79.82 Long term (current) use of aspirin; Z79.899 Other long term (current) drug therapy; K27.9 Peptic ulcer, site unspecified, unspecified as acute or chronic, without hemorrhage or perforation
CPT/HCPCS: 62321; J2250; J1100; J3010; Q9966; 99152

== ENCOUNTER 2018-03-23 19:50 | Observation (INO) | payer OTHER ==
[2018-03-23] MEDS ORDERED: ASPIRIN 81 MG PO STA (19:58)
[2018-03-23] MEDS ORDERED: SODIUM CHLORIDE 0.9% 1,000 ML IV STA (19:58)
[2018-03-23] MEDS ORDERED: HEPARIN SODIUM,PORCINE 5,000 UNIT/ML 1 ML VIAL IV PRN (19:58)
[2018-03-23] MEDS ORDERED: HEPARIN SODIUM,PORCINE 5,000 UNIT/ML 1 ML VIAL IV ONE (19:58)
[2018-03-23] MEDS ORDERED: NITROGLYCERIN SL TABS 0.4 MG TAB SUBLINGUAL PRN (19:58)
[2018-03-23] MEDS ORDERED: SODIUM CHLORIDE 0.9% 500 ML 500 ML IV STA (19:58)
[2018-03-23] MEDS ORDERED: HEPARIN SOD,PORK IN 0.45% NACL 25,000 UNIT in 0.45% NACL 1 500ML.BAG IV SCH (20:00)
--- NOTE | 2018-03-23 20:13 | ED ---
Chest Pain HPI - General Chief Complaint: Chest Pain Stated Complaint: chest pain Source: patient, RN notes reviewed, old records reviewed Mode of arrival: ambulatory Limitations: no limitations - History of Present Illness Initial Comments: This is a 47-year-old male the ER for evasive chest pain history of CAD history of STENTS, 7. Patient coming in with classic anterior chest pain heaviness and diaphoresis and shortness of breath. MD Complaint: chest pain -: hour(s) (4) Onset: during rest Pain Location: substernal, left chest Pain Radiation: LUE Severity: moderate Severity scale (1-10): 4 Quality: tightness, heaviness Improves With: nothing Worsens With: nothing Anginal Symptoms: nausea, diaphoresis Treatments Prior to Arrival: none - Related Data Home Medications Medication Instructions Recorded Confirmed traMADol HCL [Ultram] 50 mg PO BID PRN 03/03/15 03/23/18 Pantoprazole [Protonix] 40 mg PO DAILY 09/04/15 03/23/18 Aspirin EC [Ecotrin] 325 mg PO DAILY 03/23/18 03/23/18 Isosorbide Mononitrate ER [Imdur] 30 mg PO DAILY 03/23/18 03/23/18 Previous Rx's Medication Instructions Recorded Atorvastatin [Lipitor] 80 mg PO HS #30 tab 07/23/16 Clopidogrel [Plavix] 75 mg PO DAILY #303 tab 07/23/16 Lisinopril [Zestril] 2.5 mg PO DAILY #30 tab 07/23/16 Metoprolol Tartrate [Lopressor] 12.5 mg PO BID #60 tab 07/23/16 Nitroglycerin Sl Tabs [Nitrostat] 0.4 mg SUBLINGUAL Q5M PRN #25 tab 07/23/16 Allergies Allergy/AdvReac Type Severity Reaction Status Date / Time No Known Allergies Allergy Verified 03/23/18 20:28 Review of Systems ROS Statement: Those systems with pertinent positive or pertinent negative responses have been documented in the HPI. ROS Other: All systems not noted in ROS Statement are negative. EKG Findings - EKG Comments: EKG Findings:: EKG shows sinus rhythm rate of 83, DE 148, QRS 102, QTc 4:15 Past Medical History Past Medical History: Coronary Artery Disease (CAD), Myocardial Infarction ([place]) , Rheumatoid Arthritis (RA) Additional Past Medical History / Comment(s): PEPTIC ULCERS Has partially torn meniscus in both knees Last Myocardial Infarction Date:: 03/03/15 History of Any Multi-Drug Resistant Organisms: None Reported Past Surgical History: Heart Catheterization With Stent Additional Past Surgical History / Comment(s): pt has 6 stents involving the RCA , remus intermedius and circ. Past Anesthesia/Blood Transfusion Reactions: No Reported Reaction Date of Last Stent Placement:: 03/12/2015 Past Psychological History: No Psychological Hx Reported Smoking Status: Former smoker Past Alcohol Use History: Occasional Past Drug Use History: None Reported - Past Family History Father History Unknown: Yes Family Medical History: Coronary Artery Disease (CAD) Additional Family Medical History / Comment(s): DC AT AGE 27 Mother Family Medical History: Diabetes Mellitus General Exam Limitations: no limitations General appearance: alert, in no apparent distress, anxious Head exam: Present: atraumatic, normocephalic, normal inspection Eye exam: Present: normal appearance, PERRL, EOMI. Absent: scleral icterus, conjunctival injection, periorbital swelling ENT exam: Present: normal exam, mucous membranes moist Neck exam: Present: normal inspection. Absent: tenderness, meningismus, lymphadenopathy Respiratory exam: Present: normal lung sounds bilaterally. Absent: respiratory distress, wheezes, rales, rhonchi, stridor Cardiovascular Exam: Present: regular rate, normal rhythm, normal heart sounds. Absent: systolic murmur, diastolic murmur, rubs, gallop, clicks GI/Abdominal exam: Present: soft, normal bowel sounds. Absent: distended, tenderness, guarding, rebound, rigid Extremities exam: Present: normal inspection, full ROM, normal capillary refill. Absent: tenderness, pedal edema, joint swelling, calf tenderness Back exam: Present: normal inspection Neurological exam: Present: alert, oriented X3, CN II-XII intact Psychiatric exam: Present: normal affect, normal mood Skin exam: Present: warm, dry, intact, normal color. Absent: rash Course Vital Signs 03/23/18 03/23/18 03/23/18 19:53 20:11 20:20 Temperature 97.8 F Pulse Rate 83 73 74 Respiratory 20 22 13 Rate Blood Pressure 157/104 137/91 O2 Sat by Pulse 95 96 Oximetry 03/23/18 03/23/18 21:25 21:30 Temperature 97.7 F Pulse Rate 65 Respiratory 16 16 Rate Blood Pressure 157/82 O2 Sat by Pulse 97 Oximetry - Reevaluation(s) Reevaluation #1: Medical records reviewed including prior heart catheterization Patient is remain with chest pain currently Studies Chest x-rays negative for acute disease Chest Pain MDM - MDM 47 male the ER with positive CAD history, patient coming in with chest pain left -sided chest pain. EKG troponin currently negative. Patient be admitted for anticoagulation and cardiac observation Critical Care Time Critical Care Time: Yes Total Critical Care Time: 31 Disposition Clinical Impression: CAD (coronary artery disease), Unstable angina pectoris, Chest pain Disposition: ADMITTED IP TO THIS HOSP Condition: Undetermined Is patient prescribed a controlled substance at d/c from ED?: No
[2018-03-23 20:34] LABS: Basophils % (A) 0 %; Eosinophils # (A) 0.1 k/uL (0-0.7); Eosinophils % (A) 1 %; HCT 44.1 % (39.0-53.0); HGB 15.6 gm/dL (13.0-17.5); Lymphocytes % (A) 25 %; MCH 34.1 pg (25.0-35.0); MCHC 35.4 g/dL (31.0-37.0); MCV 96.3 fL (80.0-100.0); Mean Platelet Volume 6.7; Monocytes # (A) 0.5 k/uL (0-1.0); Monocytes % (A) 6 %; Neutrophils # (A) 5.4 k/uL (1.3-7.7); Neutrophils % (A) 67 %; Platelet Count 233 k/uL (150-450); RBC 4.57 m/uL (4.30-5.90); RDW 12.5 % (11.5-15.5); WBC 8.1 k/uL (3.8-10.6)
[2018-03-23 20:40] LABS: INR 1.1 (<1.2); Partial Thromboplastin Time 25.3 sec (22.0-30.0); Prothrombin Time 10.7 sec (9.0-12.0)
[2018-03-23 20:41] LABS: ALT 58 U/L (21-72); AST 31 U/L (17-59); Albumin 4.5 g/dL (3.5-5.0); Alkaline Phosphatase 97 U/L (38-126); Anion Gap 13 mmol/L; Blood Urea Nitrogen 18 mg/dL (9-20); Calcium 10.1 mg/dL (8.4-10.2); Carbon Dioxide 25 mmol/L (22-30); Chloride 103 mmol/L (98-107); Glucose 88 mg/dL (74-99); Lipase 71 U/L (23-300); Magnesium 1.8 mg/dL (1.6-2.3); Potassium 3.8 mmol/L (3.5-5.1); Sodium 141 mmol/L (137-145); Total Bilirubin 1.4 mg/dL (0.2-1.3); Total Protein 7.1 g/dL (6.3-8.2)
[2018-03-23 20:43] LABS: Creatine Kinase 122 U/L (55-170)
--- NOTE | 2018-03-23 20:49 | XR ---
EXAMINATION TYPE: XR chest 2V DATE OF EXAM: 03/23/2018 COMPARISON: 07/19/2016 HISTORY: Chest pain TECHNIQUE: Frontal and lateral views of the chest are obtained. FINDINGS: Heart and mediastinum are normal. Lungs are clear. Diaphragm is normal. Bony thorax is nor mal. There are chest leads. IMPRESSION: Normal chest. No change.
[2018-03-23 20:57] LABS: Creatine Kinase MB 1.1 ng/mL (0.0-2.4); Troponin I <0.012 ng/mL (0.000-0.034)
[2018-03-23] MEDS: METOPROLOL TARTRATE 25 MG TAB PO SCH (21:15)
[2018-03-23 21:30] VITALS: RESP 16
[2018-03-23 22:02] VITALS: BMI 30.4
[2018-03-23 22:53] LABS: Cholesterol 121 mg/dL (<200); HDL Cholesterol 44 mg/dL (40-60); LDL Cholesterol,Calculated 58 mg/dL (0-99); Triglycerides 97 mg/dL (<150)
[2018-03-24] MEDS ORDERED: ONDANSETRON 4 MG/2 ML VIAL IVP PRN (00:31)
[2018-03-24 04:15] LABS: Creatine Kinase 97 U/L (55-170)
[2018-03-24 04:26] LABS: Troponin I <0.012 ng/mL (0.000-0.034)
[2018-03-24 08:14] VITALS: BP 110/73; PULSE 63; TEMP 98.3
[2018-03-24] MEDS ORDERED: DOBUTamine DRIP for NUC MED 500 MG in DEXTROSE/WATER 1 250ML.BAG IV ONE (08:32)
[2018-03-24] MEDS ORDERED: ISOSORBIDE MONONITRATE ER 30 MG TAB.ER.24H PO SCH (09:00)
[2018-03-24] MEDS ORDERED: ASPIRIN 325 MG TAB PO SCH ×2 (09:00→21:00)
[2018-03-24] MEDS ORDERED: LISINOPRIL 2.5 MG TAB PO SCH (09:00)
[2018-03-24] MEDS ORDERED: CLOPIDOGREL 75 MG TAB PO SCH (09:00)
--- NOTE | 2018-03-24 09:24 | P.CRDCN ---
<Mark Martinay - Last Filed: 03/24/18 09:24> History of Present Illness History of present illness: 47-year-old male patient presenting with chest discomfort with radiation in the right shoulder and arm some nausea and possible epigastric discomfort normal cardiac enzymes known coronary artery disease hypertension compliant with his medications Suggest exercise stress echo today Past Medical History Past Medical History: Coronary Artery Disease (CAD), Myocardial Infarction (NM) , Rheumatoid Arthritis (RA) Additional Past Medical History / Comment(s): PEPTIC ULCERS Has partially torn meniscus in both knees Last Myocardial Infarction Date:: 03/22/2015 History of Any Multi-Drug Resistant Organisms: None Reported Past Surgical History: Heart Catheterization With Stent Additional Past Surgical History / Comment(s): pt has 6 stents involving the RCA , remus intermedius, circ and LAD Past Anesthesia/Blood Transfusion Reactions: No Reported Reaction Date of Last Stent Placement:: 07/22/2016 Past Psychological History: No Psychological Hx Reported Additional Psychological History / Comment(s): MILD DEPRESSION OVER RECENT MED PROBLEMS. 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 Smoking Status: Former smoker Past Alcohol Use History: Occasional Additional Past Alcohol Use History / Comment(s): started smoking at age 17 smoked 1ppd, quit 2-2014 Past Drug Use History: None Reported - Past Family History Father History Unknown: Yes Family Medical History: Coronary Artery Disease (CAD) Additional Family Medical History / Comment(s): NM AT AGE 27 Mother Family Medical History: Diabetes Mellitus Medications and Allergies Home Medications Medication Instructions Recorded Confirmed Type traMADol HCL [Ultram] 50 mg PO BID PRN 03/03/15 03/23/18 History Pantoprazole [Protonix] 40 mg PO DAILY 09/04/15 03/23/18 History Atorvastatin [Lipitor] 80 mg PO HS #30 tab 07/23/16 03/23/18 Rx Clopidogrel [Plavix] 75 mg PO DAILY #303 tab 07/23/16 03/23/18 Rx Lisinopril [Zestril] 2.5 mg PO DAILY #30 tab 07/23/16 03/23/18 Rx Metoprolol Tartrate [Lopressor] 12.5 mg PO BID #60 tab 07/23/16 03/23/18 Rx Nitroglycerin Sl Tabs [Nitrostat] 0.4 mg SUBLINGUAL Q5M PRN #25 tab 07/23/16 Rx Aspirin EC [Ecotrin] 325 mg PO DAILY 03/23/18 03/23/18 History Isosorbide Mononitrate ER [Imdur] 30 mg PO DAILY 03/23/18 03/23/18 History Allergies Allergy/AdvReac Type Severity Reaction Status Date / Time No Known Allergies Allergy Verified 03/23/18 20:28 Physical Exam Vitals: Vital Signs Temp Pulse Pulse Resp BP BP Pulse Ox 03/24/18 08:00 98.3 F 63 16 110/73 95 03/24/18 04:00 16 03/24/18 03:45 97.5 F L 56 L 16 115/76 99 03/24/18 00:00 16 03/23/18 23:51 97.5 F L 58 L 16 103/64 98 03/23/18 21:44 97.6 F 63 16 128/82 97 03/23/18 21:30 16 03/23/18 21:25 97.7 F 65 16 157/82 97 03/23/18 20:20 74 13 137/91 96 03/23/18 20:11 73 22 03/23/18 19:53 97.8 F 83 20 157/104 95 Intake and Output 03/23/18 03/24/18 03/24/18 22:59 06:59 14:59 Intake Total 145.302 Balance 145.302 Intake: Intake, IV Titration 145.302 Amount Heparin Sod,Pork in 0.45% 145.302 NaCl 25,000 unit In 0.45 % NaCl 1 500ml.bag @ 11 UNITS/KG/HR 19.95 mls/hr IV .Q24H [facility] Rx#: [id number] Other: # Voids 3 Weight 90.7 kg Results 03/23/18 20:05 03/23/18 20:05 Cardiac Enzymes 03/23/18 03/23/18 03/24/18 Range/Units 20:05 20:05 03:13 AST 31 (17-59) U/L CK-MB (CK-2) 1.1 1.0 (0.0-2.4) ng/mL Troponin I <0.012 <0.012 (0.000-0.034) ng/mL Coagulation 03/23/18 03/24/18 Range/Units 20:05 03:13 PT 10.7 (9.0-12.0) sec APTT 25.3 42.4 H (22.0-30.0) sec Lipids 03/23/18 Range/Units 20:05 Triglycerides 97 (<150) mg/dL Cholesterol 121 (<200) mg/dL HDL Cholesterol 44 (40-60) mg/dL CBC 03/23/18 Range/Units 20:05 WBC 8.1 (3.8-10.6) k/uL RBC 4.57 (4.30-5.90) m/uL Hgb 15.6 (13.0-17.5) gm/dL Hct 44.1 (39.0-53.0) % Plt Count 233 (150-450) k/uL Comprehensive Metabolic Panel 03/23/18 Range/Units 20:05 Sodium 141 (137-145) mmol/L Potassium 3.8 (3.5-5.1) mmol/L Chloride 103 (98-107) mmol/L Carbon Dioxide 25 (22-30) mmol/L BUN 18 (9-20) mg/dL Creatinine 1.03 (0.66-1.25) mg/dL Glucose 88 (74-99) mg/dL Calcium 10.1 (8.4-10.2) mg/dL AST 31 (17-59) U/L ALT 58 (21-72) U/L Alkaline Phosphatase 97 (38-126) U/L Total Protein 7.1 (6.3-8.2) g/dL Albumin 4.5 (3.5-5.0) g/dL Current Medications Generic Name Dose Route Start Last Admin Trade Name Freq PRN Reason Stop Dose Admin Aspirin 325 mg 03/24/18 09:00 Aspirin PO DAILY [facility] Atorvastatin Calcium 80 mg 03/24/18 21:00 Lipitor PO HS [facility] Clopidogrel Bisulfate 75 mg 03/24/18 09:00 Plavix PO DAILY [facility] Heparin Sodium (Porcine) 0 unit 03/23/18 19:58 Heparin IV Q6HR PRN Low PTT Protocol Dobutamine HCl/Dextrose 500 mg 250 mls @ 27.21 mls/hr 03/24/18 08:32 / IV Solution IV 03/24/18 17:43 .Q9H12M ONE Protocol 10 MCG/KG/MIN Isosorbide Mononitrate 30 mg 03/24/18 09:00 Imdur PO DAILY [facility] Lisinopril 2.5 mg 03/24/18 09:00 Zestril PO DAILY [facility] Metoprolol Tartrate 25 mg 03/23/18 21:00 03/23/18 21:15 Lopressor PO 25 mg BID [facility] Administration Nitroglycerin 0.4 mg 03/23/18 19:58 Nitrostat SUBLINGUAL Q5M PRN Chest Pain Ondansetron HCl 4 mg 03/24/18 00:31 Zofran IVP Q6HR PRN Nausea And Vomiting Intake and Output 03/23/18 03/24/18 03/24/18 22:59 06:59 14:59 Intake Total 145.302 Balance 145.302 Intake: Intake, IV Titration 145.302 Amount Heparin Sod,Pork in 0.45% 145.302 NaCl 25,000 unit In 0.45 % NaCl 1 500ml.bag @ 11 UNITS/KG/HR 19.95 mls/hr IV .Q24H [facility] Rx#: [id number] Other: # Voids 3 Weight 90.7 kg 03/23/18 20:05 03/23/18 20:05 <Dilia Loera - Last Filed: 03/24/18 13:07> History of Present Illness History of present illness: Mr. Akhtar is a pleasant 47-year-old male past medical history significant for coronary artery disease s/p multiple angioplasties. Most recently in July 2016. At that time he underwent stenting of the mid LAD. At that time had patent stents within the RCA, ramus and circumflex arteries. He also has hyperetnsion, dyslipidemia, rheumatoid arthritis and former nicotine dependence. He follows with Dr. Machado in the office. We have been asked to see him in consultation for chest pain. He states while driving home from work last night he felt a squeezing in this chest in the left precordial region with radiation to his neck, right shoulder and down the right arm. He was also nauseated and diaphoretic with the pain. He took a SL nitro that did not relieve his pain. His symptoms are not related to exertion, oral intake or any specific aggravating factors. The discomfort ultimately went away on its own but has come back intermittently since admission while at rest. He denies shortness of breath, palpitations or dizziness. He also describes mild tenderness to the right upper quadrant. EKG reveals sinus mechanism with no acute ST or T-wave abnormalities. Chest xray negative for an acute cardiopulmonary process. Laboratory data reviewed, hemoglobin 15.6, platelets 212, sodium 141, potassium 3.8, mesion 1.8, creatinine 1.03, total bilirubin 1.4, cardiac enzymes negative 3, NT proBNP 44, LDL 58 and HDL 44. Current cardiac medications include aspirin 325 mg daily, atorvastatin 80 mg daily, Plavix 75 mg daily, Imdur 30 mg daily, lisinopril 2.5 mg daily, Lopressor 12.5 mg twice a day. He also takes Protonix and Ultram. Most recent echocardiogram performed in the office October 2016 reveals preserved left ventricular systolic function with ejection fraction 50%. At the time of my exam: CONSTITUTIONAL: Denies fever. Denies chills. EYES: Denies blurred vision. Denies vision changes. Denies eye pain. EARS, NOSE, MOUTH & THROAT: Denies headache. Denies sore throat. Denies ear pain. CARDIOVASCULAR: Denies chest pain. Denies shortness of breath. Denies orthopnea. Denies PND. Denies palpitations. RESPIRATORY: Denies cough. GASTROINTESTINAL: Denies abdominal pain. Denies diarrhea. Denies constipation. Denies nausea. Denies vomiting. MUSCULOSKELETAL: Denies myalgias. INTEGUMENTARY: Denies pruitis. Denies rash. NEUROLOGIC: Denies numbness. Denies tingling. Denies weakness. PSYCHIATRIC: Denies anxiety. Denies depression. ENDOCRINE: Denies fatigue. Denies weight change. Denies polydipsia. Denies polyurina. GENITOURINARY: Denies burning, hematuria or urgency with micturation. HEMATOLOGIC: Denies history of anemia. Denies bleeding. Blood pressure 110/73 heart rate 63 afebrile maintaining oxygen saturation remained GENERAL: This is a 47-year-old male in no apparent distress at the time of my examination. HEENT: Head is atraumatic, normocephalic. Pupils are equal, round. Sclerae anicteric. Conjunctivae are clear. Mucous membranes of the mouth are moist. Neck is supple. There is no jugular venous distention. No carotid bruit is heard. LUNGS: Clear to auscultation no wheezes, rales or rhonchi. No chest wall tenderness is noted on palpation or with deep breathing. HEART: Regular rate and rhythm without murmurs, rubs or gallops. S1 and S2 heard. ABDOMEN: Soft, nontender. Bowel sounds are heard. No organomegaly noted. EXTREMITIES: No evidence of peripheral edema and no calf tenderness noted. VASCULAR: Radial and dorsalis pedis pulses palpated, no evidence of clubbing. NEUROLOGIC: Patient is awake, alert and oriented x3. ASSESSMENT Chest pain, atypical. An acute coronary event is ruled out with no EKG evidence of ischemia and negative cardiac enzymes. History of coronary artery disease status post multiple angioplasties Hypertension Dyslipidemia PLAN An acute coronary event has been ruled out with no EKG evidence of ischemia and negative cardiac enzymes. Obtain ultrasound of the gallbladder, primary care team to manage if abnormal. Perform stress echocardiogram to assess for stress-induced ischemia. Stress test is normal he is stable from a cardiac perspective, follow-up with Dr. Machado in 2-3 weeks. Thank you kindly for this consultation. Nurse Practitioner note has been reviewed, I agree with a documented findings and plan of care. Patient was seen and examined. Physical Exam Vitals: Vital Signs Temp Pulse Pulse Resp BP BP Pulse Ox 03/24/18 12:00 63 16 03/24/18 08:00 98.3 F 63 16 110/73 95 03/24/18 04:00 16 03/24/18 03:45 97.5 F L 56 L 16 115/76 99 03/24/18 00:00 16 03/23/18 23:51 97.5 F L 58 L 16 103/64 98 03/23/18 21:44 97.6 F 63 16 128/82 97 03/23/18 21:30 16 03/23/18 21:25 97.7 F 65 16 157/82 97 03/23/18 20:20 74 13 137/91 96 03/23/18 20:11 73 22 03/23/18 19:53 97.8 F 83 20 157/104 95 Intake and Output 03/23/18 03/24/18 03/24/18 22:59 06:59 14:59 Intake Total 145.302 Balance 145.302 Intake: Intake, IV Titration 145.302 Amount Heparin Sod,Pork in 0.45% 145.302 NaCl 25,000 unit In 0.45 % NaCl 1 500ml.bag @ 11 UNITS/KG/HR 19.95 mls/hr IV .Q24H [facility] Rx#: [id number] Other: # Voids 3 Weight 90.7 kg Results 03/24/18 10:03 03/23/18 20:05 Cardiac Enzymes 03/23/18 03/23/18 03/24/18 Range/Units 20:05 20:05 03:13 AST 31 (17-59) U/L CK-MB (CK-2) 1.1 1.0 (0.0-2.4) ng/mL Troponin I <0.012 <0.012 (0.000-0.034) ng/mL 03/24/18 Range/Units 10:03 AST (17-59) U/L CK-MB (CK-2) 0.8 (0.0-2.4) ng/mL Troponin I <0.012 (0.000-0.034) ng/mL Coagulation 03/23/18 03/24/18 Range/Units 20:05 03:13 PT 10.7 (9.0-12.0) sec APTT 25.3 42.4 H (22.0-30.0) sec Lipids 03/23/18 Range/Units 20:05 Triglycerides 97 (<150) mg/dL Cholesterol 121 (<200) mg/dL HDL Cholesterol 44 (40-60) mg/dL CBC 03/23/18 03/24/18 Range/Units 20:05 10:03 WBC 8.1 (3.8-10.6) k/uL RBC 4.57 (4.30-5.90) m/uL Hgb 15.6 (13.0-17.5) gm/dL Hct 44.1 (39.0-53.0) % Plt Count 233 212 (150-450) k/uL Comprehensive Metabolic Panel 03/23/18 Range/Units 20:05 Sodium 141 (137-145) mmol/L Potassium 3.8 (3.5-5.1) mmol/L Chloride 103 (98-107) mmol/L Carbon Dioxide 25 (22-30) mmol/L BUN 18 (9-20) mg/dL Creatinine 1.03 (0.66-1.25) mg/dL Glucose 88 (74-99) mg/dL Calcium 10.1 (8.4-10.2) mg/dL AST 31 (17-59) U/L ALT 58 (21-72) U/L Alkaline Phosphatase 97 (38-126) U/L Total Protein 7.1 (6.3-8.2) g/dL Albumin 4.5 (3.5-5.0) g/dL Current Medications Generic Name Dose Route Start Last Admin Trade Name Freq PRN Reason Stop Dose Admin Aspirin 325 mg 03/24/18 21:00 Aspirin PO HS [facility] Atorvastatin Calcium 80 mg 03/24/18 21:00 Lipitor PO HS [facility] Clopidogrel Bisulfate 75 mg 03/24/18 09:00 03/24/18 11:12 Plavix PO 75 mg DAILY [facility] Administration Heparin Sodium (Porcine) 0 unit 03/23/18 19:58 Heparin IV Q6HR PRN Low PTT Protocol Dobutamine HCl/Dextrose 500 mg 250 mls @ 27.21 mls/hr 03/24/18 08:32 12:42 / IV Solution IV 03/24/18 17:43 Not Given .Q9H12M ONE Protocol 10 MCG/KG/MIN Isosorbide Mononitrate 30 mg 03/24/18 09:00 03/24/18 11:12 Imdur PO 30 mg DAILY [facility] Administration Lisinopril 2.5 mg 03/24/18 09:00 03/24/18 11:12 Zestril PO 2.5 mg DAILY [facility] Administration Metoprolol Tartrate 25 mg 03/23/18 21:00 03/24/18 12:39 Lopressor PO 25 mg BID [facility] Administration Nitroglycerin 0.4 mg 03/23/18 19:58 Nitrostat SUBLINGUAL Q5M PRN Chest Pain Ondansetron HCl 4 mg 03/24/18 00:31 Zofran IVP Q6HR PRN Nausea And Vomiting Intake and Output 03/23/18 03/24/18 03/24/18 22:59 06:59 14:59 Intake Total 145.302 Balance 145.302 Intake: Intake, IV Titration 145.302 Amount Heparin Sod,Pork in 0.45% 145.302 NaCl 25,000 unit In 0.45 % NaCl 1 500ml.bag @ 11 UNITS/KG/HR 19.95 mls/hr IV .Q24H [facility] Rx#: [id number] Other: # Voids 3 Weight 90.7 kg 03/24/18 10:03 03/23/18 20:05
--- NOTE | 2018-03-24 10:30 | US ---
EXAMINATION TYPE: US gallbladder DATE OF EXAM: 03/24/2018 COMPARISON: US 07/13/17. CLINICAL HISTORY: 47-year-old male abdominal pain. TECHNIQUE: Multiple sonographic images of the right upper quadrant are obtained. FINDINGS: EXAM MEASUREMENTS: Liver Length: 14.4 cm Gallbladder Wall: 0.1 cm CBD: 0.2 cm Right Kidney: 11.8 x 5.6 x 5.6 cm Pancreas: Partially Obscured by bowel gas. Visualized portions of the body and head show no gross ab normality. Liver: Right lobe liver cyst noted again =1.3 x 1.0 x 0.9 cm, cyst on left lobe not seen this time d ue to large amounts of bowel gas. Gallbladder: wnl Evidence for sonographic Bermudez's sign: Yes CBD: wnl Right Kidney: Small 1.2 x 0.9 x 0.9 cm cyst in the mid to lower pole. Some low level internal echoes are felt to be artifactual. No hydronephrosis. IMPRESSION: 1. Portions of the liver obscured by bowel gas. There is a stable 1.3 cm cyst in the right lobe. 2. No gallstones or ancillary imaging findings of acute cholecystitis. However, sonographic Bermudez si gn is reported positive. This could reflect referred pain. If further imaging evaluation of the gallb ladder is desired, consider HIDA scan with ejection fraction.
[2018-03-24 11:28] LABS: Mean Platelet Volume 6.7; Platelet Count 212 k/uL (150-450)
[2018-03-24 11:39] LABS: Creatine Kinase 89 U/L (55-170)
[2018-03-24 11:49] LABS: Creatine Kinase MB 0.8 ng/mL (0.0-2.4); Troponin I <0.012 ng/mL (0.000-0.034)
[2018-03-24] MEDS: METOPROLOL TARTRATE 25 MG TAB PO SCH (12:39)
--- NOTE | 2018-03-24 13:23 | ECHOS ---
STRESS ECHOCARDIOGRAM DOBUTAMINE STRESS ECHO: DATE OF SERVICE: 03/24/2018 INDICATIONS: Chest pain. MEDICATIONS: BASELINE HEART RATE: 62 BASELINE BLOOD PRESSURE: 134/76 MAXIMUM HEART RATE: 123 MAXIMUM BLOOD PRESSURE: 144/56 85% MPHR: 149 100% MPHR: 175 METS: MAXIMUM STAGE REACHED: TOTAL EXERCISE TIME: CLINICAL INFORMATION: The patient presented with chest discomfort, known coronary artery disease. Baseline heart rate 62 beats per minute. Baseline blood pressure 134/76 mmHg. Baseline 12-lead ECG showed normal sinus rhythm, normal cardiac intervals with T-wave inversions in the inferior leads and nonspecific ST-T abnormalities inferolaterally. Patient received dobutamine infusion per protocol. Peak heart rate 123 beats per minute. Normal blood pressure response to dobutamine. There was no ECG evidence for ischemia. No arrhythmias noted. The baseline 2D echo images showed normal LV size and systolic function without segmental wall motion abnormalities with dobutamine. There was a stepwise increment in overall LV contractility without development of any wall motion abnormalities. At recovery, regional global LV systolic function remained normal. IMPRESSION: No ECG or echocardiographic evidence for ischemia on dobutamine stress echo. MMODL / IJN: [id number] /
--- NOTE | 2018-03-24 15:15 | P.DS ---
Providers Date of admission: 03/23/18 20:19 Attending physician: Anette Leal Consults: 03/23/18 19:58 Consult Physician Urgent Consulting Provider: Marialuisa Yeh Consult Reason/Comments: cp Do you want consulting provider notified?: Yes Primary care physician: [facility] Course: Please refer to my HPI Patient Condition at Discharge: Undetermined Plan - Discharge Summary New Discharge Prescriptions: No Action traMADol HCL [Ultram] 50 mg PO BID PRN PRN Reason: Pain Pantoprazole [Protonix] 40 mg PO DAILY Clopidogrel [Plavix] 75 mg PO DAILY #303 tab Lisinopril [Zestril] 2.5 mg PO DAILY #30 tab Nitroglycerin Sl Tabs [Nitrostat] 0.4 mg SUBLINGUAL Q5M PRN #25 tab PRN Reason: Chest Pain Atorvastatin [Lipitor] 80 mg PO HS #30 tab Metoprolol Tartrate [Lopressor] 12.5 mg PO BID #60 tab Isosorbide Mononitrate ER [Imdur] 30 mg PO DAILY Aspirin EC [Ecotrin] 325 mg PO DAILY Discharge Medication List traMADol HCL [Ultram] 50 mg PO BID PRN 03/03/15 [History] Pantoprazole [Protonix] 40 mg PO DAILY 09/04/15 [History] Atorvastatin [Lipitor] 80 mg PO HS #30 tab 07/23/16 [Rx] Clopidogrel [Plavix] 75 mg PO DAILY #303 tab 07/23/16 [Rx] Lisinopril [Zestril] 2.5 mg PO DAILY #30 tab 07/23/16 [Rx] Metoprolol Tartrate [Lopressor] 12.5 mg PO BID #60 tab 07/23/16 [Rx] Nitroglycerin Sl Tabs [Nitrostat] 0.4 mg SUBLINGUAL Q5M PRN #25 tab 07/23/16 [Rx ] Aspirin EC [Ecotrin] 325 mg PO DAILY 03/23/18 [History] Isosorbide Mononitrate ER [Imdur] 30 mg PO DAILY 03/23/18 [History] Follow up Appointment(s)/Referral(s): Kamron Patel DO [Doctor of Osteopathic Medicine] - 3 Days Patient Instructions/Handouts: Chest Pain (ED) Discharge Disposition: HOME SELF-CARE
--- NOTE | 2018-03-24 15:15 | P.HPIM ---
History of Present Illness 47-year-old gentleman with history of coronary artery disease and angioplasty in the past in July 2016 stenting to mid LAD came in with the complaints of chest pain squeezing in nature in the precordial region radiating to his neck and right shoulder area denied any diaphoresis or shortness of breath lightheadedness associated with that his pain is nonpleuritic not associated with food doesn't change with the movement of the chest wall. Denied any palpitations. Patient was evaluated cardiology rule out acute coronary syndromes patient subsequently underwent stress test which was negative. Patient pain radiates to the back because of which ultrasound of the gallbladder was opted which is negative for any gallstones patient pain improved patient pain was 3/10 in severity etiology is not clear may be musculoskeletal in nature patient will be discharged to follow up with primary care physician. Review of Systems REVIEW OF SYSTEMS: CONSTITUTIONAL: No fever, no malaise, no fatigue. HEENT: No recent visual problems or hearing problems. Denied any sore throat. CARDIOVASCULAR: No , orthopnea, PND, no palpitations, no syncope. PULMONARY: No shortness of breath, no cough, no hemoptysis. GASTROINTESTINAL: No diarrhea, no nausea, no vomiting, no abdominal pain. Normoactive bowel sounds. NEUROLOGICAL: No headaches, no weakness, no numbness. HEMATOLOGICAL: Denies any bleeding or petechiae. GENITOURINARY: Denies any burning micturition, frequency, or urgency. MUSCULOSKELETAL/RHEUMATOLOGICAL: Denies any joint pain, swelling, or any muscle pain. ENDOCRINE: Denies any polyuria or polydipsia. The rest of the 14-point review of systems is negative. Past Medical History Past Medical History: Coronary Artery Disease (CAD), Myocardial Infarction (ME) , Rheumatoid Arthritis (RA) Additional Past Medical History / Comment(s): PEPTIC ULCERS Has partially torn meniscus in both knees Last Myocardial Infarction Date:: 03/22/2015 History of Any Multi-Drug Resistant Organisms: None Reported Past Surgical History: Heart Catheterization With Stent Additional Past Surgical History / Comment(s): pt has 6 stents involving the RCA , remus intermedius, circ and LAD Past Anesthesia/Blood Transfusion Reactions: No Reported Reaction Date of Last Stent Placement:: 07/22/2016 Past Psychological History: No Psychological Hx Reported Additional Psychological History / Comment(s): MILD DEPRESSION OVER RECENT MED PROBLEMS. 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 Smoking Status: Former smoker Past Alcohol Use History: Occasional Additional Past Alcohol Use History / Comment(s): started smoking at age 17 smoked 1ppd, quit -2014 Past Drug Use History: None Reported - Past Family History Father History Unknown: Yes Family Medical History: Coronary Artery Disease (CAD) Additional Family Medical History / Comment(s): ME AT AGE 27 Mother Family Medical History: Diabetes Mellitus Medications and Allergies Home Medications Medication Instructions Recorded Confirmed Type traMADol HCL [Ultram] 50 mg PO BID PRN 03/03/15 03/23/18 History Pantoprazole [Protonix] 40 mg PO DAILY 09/04/15 03/23/18 History Atorvastatin [Lipitor] 80 mg PO HS #30 tab 07/23/16 03/23/18 Rx Clopidogrel [Plavix] 75 mg PO DAILY #303 tab 07/23/16 03/23/18 Rx Lisinopril [Zestril] 2.5 mg PO DAILY #30 tab 07/23/16 03/23/18 Rx Metoprolol Tartrate [Lopressor] 12.5 mg PO BID #60 tab 07/23/16 03/23/18 Rx Nitroglycerin Sl Tabs [Nitrostat] 0.4 mg SUBLINGUAL Q5M PRN #25 tab 07/23/16 Rx Aspirin EC [Ecotrin] 325 mg PO DAILY 03/23/18 03/23/18 History Isosorbide Mononitrate ER [Imdur] 30 mg PO DAILY 03/23/18 03/23/18 History Allergies Allergy/AdvReac Type Severity Reaction Status Date / Time No Known Allergies Allergy Verified 03/23/18 20:28 Physical Exam Vitals: Vital Signs Temp Pulse Pulse Resp BP BP Pulse Ox 03/24/18 12:00 63 16 03/24/18 08:00 98.3 F 63 16 110/73 95 03/24/18 04:00 16 03/24/18 03:45 97.5 F L 56 L 16 115/76 99 03/24/18 00:00 16 03/23/18 23:51 97.5 F L 58 L 16 103/64 98 03/23/18 21:44 97.6 F 63 16 128/82 97 03/23/18 21:30 16 03/23/18 21:25 97.7 F 65 16 157/82 97 03/23/18 20:20 74 13 137/91 96 03/23/18 20:11 73 22 03/23/18 19:53 97.8 F 83 20 157/104 95 Intake and Output 03/24/18 03/24/18 03/24/18 06:59 14:59 22:59 Intake Total 145.302 Balance 145.302 Intake: Intake, IV Titration 145.302 Amount Heparin Sod,Pork in 0.45% 145.302 NaCl 25,000 unit In 0.45 % NaCl 1 500ml.bag @ 11 UNITS/KG/HR 19.95 mls/hr IV .Q24H [facility] Rx#: [id number] Other: # Voids 3 PHYSICAL EXAMINATION: GENERAL: The patient is alert and oriented x3, not in any acute distress. Well developed, well nourished. HEENT: Pupils are round and equally reacting to light. EOMI. No scleral icterus. No conjunctival pallor. Normocephalic, atraumatic. No pharyngeal erythema. No thyromegaly. CARDIOVASCULAR: S1 and S2 present. No murmurs, rubs, or gallops. PULMONARY: Chest is clear to auscultation, no wheezing or crackles. ABDOMEN: Soft, nontender, nondistended, normoactive bowel sounds. No palpable organomegaly. MUSCULOSKELETAL: No joint swelling or deformity. EXTREMITIES: No cyanosis, clubbing, or pedal edema. NEUROLOGICAL: Gross neurological examination did not reveal any focal deficits. SKIN: No rashes. Results CBC & Chem 7: 03/24/18 10:03 03/23/18 20:05 Labs: Abnormal Lab Results - Last 24 Hours (Table) 03/23/18 03/24/18 Range/Units 20:05 03:13 APTT 42.4 H (22.0-30.0) sec Total Bilirubin 1.4 H (0.2-1.3) mg/dL Thrombosis Risk Factor Assmnt - Choose All That Apply Each Factor Represents 1 point: Age 41-60 years, Obesity (BMI >25) Thrombosis Risk Factor Assessment Total Risk Factor Score: 2 Thrombosis Risk Factor Assessment Level: Low Risk Assessment and Plan Plan: -Chest pain etiology is unclear rule out acute coronary syndromes, unstable angina. Further management as mentioned above patient will be discharged today -Coronary artery disease -Hypertension -Hyperlipidemia -Gastroesophageal reflux disease -Patient will be discharged today in stable medical condition to home.
[2018-03-24] MEDS ORDERED: ATORVASTATIN 80 MG TAB PO SCH (21:00)
== END 2018-03-24 16:13 | disposition home or self-care (01) ==
LOC: EC 19:50 → 1SOBS 20:19
PROVIDERS: ADMIT Hospitalist; ATTEND Hospitalist
DX: R07.89 Other chest pain (principal); Z95.5 Presence of coronary angioplasty implant and graft; I25.10 Atherosclerotic heart disease of native coronary artery without angina pectoris; E78.5 Hyperlipidemia, unspecified; I10 Essential (primary) hypertension; K21.9 Gastro-esophageal reflux disease without esophagitis; M06.9 Rheumatoid arthritis, unspecified; I25.2 Old myocardial infarction; Z83.3 Family history of diabetes mellitus; Z87.11 Personal history of peptic ulcer disease; Z87.891 Personal history of nicotine dependence; Z82.49 Family history of ischemic heart disease and other diseases of the circulatory system; Z79.82 Long term (current) use of aspirin; Z79.899 Other long term (current) drug therapy; Z79.02 Long term (current) use of antithrombotics/antiplatelets
CPT/HCPCS: 96366 ×2; 96376; 96365; 99291; 36415; 93005; 93351; 83880; 80061; 80053; 82550 ×2; 82553 ×2; 83690; 83735; 84484 ×2; 85025; 85049; 85610; 85730 ×2; 71046; 76705; G0378 ×2; J1250; J1644 ×2

== ENCOUNTER → 2018-04-05 | Day surgery (SDC) | payer OTHER ==
[2018-03-29 13:16] VITALS: BMI 30.4
[~2018-04-05] MED LIST changes: -LACTATED RINGERS 1,000 ML IV SCH; +SODIUM CHLORIDE 0.9% 500 ML 500 ML IV SCH
[2018-04-05 08:40] VITALS: RESP 18; TEMP 98.2
--- NOTE | 2018-04-05 09:05 | P.PCN ---
Date of Procedure: 04/05/18 Procedure(s) Performed: . PROCEDURE 1. Cervical epidural steroid injection under fluoroscopic guidance, C7-T1 2. Cervical epidurogram. PREOPERATIVE DIAGNOSIS: 1- Cervical radiculopathy. 2-cervical spondylosis with cervical Facet arthropathy without myelopathy POSTOPERATIVE DIAGNOSIS: : 1- Cervical radiculopathy. 2-cervical spondylosis with cervical Facet arthropathy without myelopathy ANESTHESIA: Local anesthesia with lidocaine 1 % , and moderate sedation, with Versed 2 mg and Fentanyl 50 mcg. EBL 0 PROCEDURE INDICATION: The patient with neck pain and radiculitis unresponsive to conservative treatment consents for procedure. PROCEDURE DESCRIPTION / TECHNIQUE: The patient was seen and identified in the preoperative area. Risks, benefits, complications, including but not limited to infections ,bleeding , allergic reactions to the medications ,and not complete pain releife, and alternatives were discussed with the patient, the patient agreed to proceed with the procedure and signed the consent. Patient was taken to the OR and time out was completed. The patient was placed in the prone position on the procedure table. A pillow was placed under the patients chest to increase the cervical interlaminar space. The cervical area was prepped and draped in the usual sterile fashion. Vital signs were closely monitored during the procedure. Conscious sedation was used during the procedure to decrease patients anxiety. Using anterior-posterior fluoroscopy, the C7-T1 interlaminar space was identified and the skin over this site was marked and then infiltrated with 1% lidocaine subcutaneously. Subsequently, a 20-gauge 3-1/2-inch Tuohy epidural needle was inserted and advanced toward the epidural space by means of the `` hanging-drop technique and guided by AP and lateral fluoroscopy. The correct needle position in the epidural space was verified with the injection of 2 mL of the water soluble contrast dye Isovue-200 and observing an excellent epidurogram with the epidural spread of the dye, after negative aspiration for blood and CSF and in the absence of paresthesias. Again after negative aspiration, mixture containing 20 mg Dexamethasone and 2 ml of preservative- free normal saline injected and a washout of epidurogram was seen. Needle was withdrawn intact, skin was cleansed, and bandages were applied. Complications= none. Disposition= patient was placed in supine position and transferred to the recovery room area in stable condition and there was no evidence of upper or lower extremity motor or sensory deficit after the procedure patient was discharged from recovery room after discharge criteria met and home discharge instructions was given by the staff and patient will follow with the pain clinic in 2-4 weeks
--- NOTE | 2018-04-05 09:17 | FL ---
Fluoroscopy HISTORY: Pain 4 seconds fluoroscopy time supplied to the referring clinician. 1 intraoperative C-arm images docume nt the procedure. See dictated report from anesthesia.
[2018-04-05 09:41] VITALS: BP 125/86; PULSE 66
== END | disposition home or self-care (01) ==
LOC: ORPAIN 08:20
PROVIDERS: ATTEND Specialist
DX: M47.22 Other spondylosis with radiculopathy, cervical region (principal); I10 Essential (primary) hypertension; I25.10 Atherosclerotic heart disease of native coronary artery without angina pectoris; Z79.02 Long term (current) use of antithrombotics/antiplatelets; Z87.11 Personal history of peptic ulcer disease
CPT/HCPCS: 62321; J2250; J1100; J3010; Q9966

== ENCOUNTER → 2018-05-24 | Outpatient (CLI) | payer OTHER ==
[2018-05-24 14:54] VITALS: BP 132/78; PULSE 74; RESP 18
--- NOTE | 2018-05-24 15:51 | P.PN ---
Subjective Progress Note Date: 05/24/18 This is follow-up visit for this patient with a history of severe and chronic neck pain with radiation to the upper extremities , diagnosed with cervical radiculopathy, cervical spondylosis , cervical spinal stenosis We have done interventional pain procedures cervical epidural steroid injections 2, patient reported that the numbness and tingling sensation in the upper extremity improved significantly, But he continued to feel some occasional weakness in the right upper extremity Patient denies any motor or sensory deficit , patient denies any fever or night sweats, denies any change in the bowel movements or urination Physical Examinations : 1-Constitutional : Cooperative , not in acute distress . 2-HEENT : nech ; supple , no Lymphadenopathy , no Thyromegaly , normal thyroid size . eyes : no ptosis , no icterus, no photophobia . ENT : normal of hearing , normal oropharynx , no Thrush . 3- Respiratory : Chest clear to auscultations Bilaterally , no wheezing , no Rhonchi . 4- Cardiovascular : regular rate and rhythem , S1 , S2 , no S3 , no S4. 5- Gastrointestinal : abdomen soft no tenderness , bowel sounds positive all four quadrents , no organomegally . 6- Genitourinary : Defferred . 7- neurologic: Cranial nerve II to XII intact , no focal neurological deffecit . 8- Psychatric: alert , oriented X 3 , appropriate affect , intact judgment and insight . 9- Lymphatic : no Lymphadenopathy . 10- Musculoskeltal : exams of the cervical spine = motor strength normal bilateral upper extremities 5 / 5 both upper extremities exams of the Lumber spine =motor strength lower extremities ,thigh and legs .5/5 Assessment and plan = chronic neck pain secondary to cervical radiculopathy, cervical spondylosis, and cervical spinal stenosis Pain improved after cervical epidural steroid injection, patient reported that , he continued to have occasional weakness in his right upper extremity, Patient could benefit from physical therapy, ( the exam was negative for any muscle weakness in the upper extremites ) - PQRS measures = - Patient's medications are documented in the chart. -Tobacco use is negative and counseling.Given. -Patient's has not received pneumococcal vaccine. -Advanced care planning discussed, patient not eligible. -Opiate contract not signed. -Pain positive and follow-up visit/procedure is scheduled. -Patient's blood pressure measured [132/78 ] , and documented in the record ,and patient will follow up with the primary care. -Patient's weight was measured and body mass index [ 33.5 ] above the. and patient instructed to follow-up with the primary care physician. -Patient was not identified as an unhealthy alcohol user Objective - Vital Signs Vital signs: Vital Signs Temp Pulse 74 05/24/18 14:43 Resp 18 05/24/18 14:43 BP 132/78 05/24/18 14:43 Pulse Ox 95 05/24/18 14:43 Intake & Output 05/23/18 05/24/18 05/24/18 18:59 06:59 18:59 Weight 99.79 kg
== END | disposition home or self-care (01) ==
LOC: PNWHC3 14:39
PROVIDERS: ATTEND Specialist
DX: G89.29 Other chronic pain (principal); M48.02 Spinal stenosis, cervical region; M47.22 Other spondylosis with radiculopathy, cervical region
CPT/HCPCS: 99211

== ENCOUNTER → 2018-07-12 | Outpatient (CLI) | payer OTHER ==
--- NOTE | 2018-07-12 08:18 | US ---
EXAMINATION TYPE: US abdomen complete DATE OF EXAM: 07/12/2018 COMPARISON: Gallbladder ultrasound March 24, 2018 CLINICAL HISTORY: R10.84 Generalized abdominal pain. EXAM MEASUREMENTS: Liver Length: 15.7 cm Gallbladder Wall: 0.4 cm CBD: 0.6 cm Spleen: 10.3 cm Right Kidney: 10.8 x 5.0 x 7.2 cm Left Kidney: 12.3 x 5.8 x 5.9 cm Pancreas: Obscured by bowel gas Liver: limited visualization due to gas, intercostal scans best view. Gallbladder: No stones seen Evidence for sonographic Bermudez's sign: yes CBD: upper limits of normal Spleen: wnl Right Kidney: No hydronephrosis or masses seen Left Kidney: No hydronephrosis or masses seen Upper IVC: Obscured by overlying bowel gas Abd Aorta: Partially Obscured by overlying bowel gas The visualized liver remains heterogeneous. The intrahepatic portion of the IVC and visualized porti ons of abdominal aorta are within normal limits. There is no evidence of shadowing mobile cholelithi asis. Common bile duct is unremarkable. The visualized portions of the pancreas are homogenous. Por tions are suboptimally evaluated as are obscured by bowel gas per technologist. The spleen is unremar kable. Kidneys are symmetric and free of hydronephrosis. No renal lesions are seen. IMPRESSION: Suboptimal study without acute finding seen to account for patient's symptoms.
== END | disposition home or self-care (01) ==
LOC: RADUSWWP 07:31
DX: R10.84 Generalized abdominal pain (principal)
CPT/HCPCS: 76700

== ENCOUNTER → 2018-10-18 | Outpatient (CLI) | payer OTHER ==
--- NOTE | 2018-10-18 11:07 | CT ---
EXAMINATION TYPE: CT abdomen wo/w con DATE OF EXAM: 10/18/2018 COMPARISON: Ultrasound abdomen 07/12/2018 HISTORY: Stomach pain X [address] DLP: 1090.2 mGycm Automated exposure control for dose reduction was used. TECHNIQUE: Helical acquisition of images was performed from the lung bases through the top of iliac crest to include entire abdomen. CONTRAST: Performed with Oral Contrast and without and with IV Contrast, patient injected with 100 mL of Isovue 300. FINDINGS: There are some coronary artery calcifications present. LUNG BASES: No significant abnormality is appreciated. LIVER/GB: Multiple subcentimeter low dense foci are scattered within the liver which statistically ar e likely to represent cysts, largest within the left lobe measures approximately 15 mm anteriorly wit h possible septation. PANCREAS: No significant abnormality is seen. SPLEEN: Splenic enlargement noted, anterior to posterior dimension is 13.5 cm. ADRENALS: No significant abnormality is seen. KIDNEYS: No significant abnormality is seen. BOWEL: Nonspecific small bowel wall thickening is noted. LYMPH NODES: No significant abnormality is appreciated. OSSEOUS STRUCTURES: No significant abnormality is seen. FREE AIR: No Free Air visible ASCITES: None visible. RETROPERITONEAL ADENOPATHY: No Retroperitoneal Adenopathy visible. OTHER: Some atheromatous change present in the aortoiliac distribution IMPRESSION: NONSPECIFIC WALL THICKENING PRESENT WITHIN THE SMALL BOWEL. Coronary artery disease and additional fi ndings above.
== END | disposition home or self-care (01) ==
LOC: RADCTMAIN 08:49
DX: K63.89 Other specified diseases of intestine (principal); R93.2 Abnormal findings on diagnostic imaging of liver and biliary tract; R16.1 Splenomegaly, not elsewhere classified; I70.0 Atherosclerosis of aorta; I70.8 Atherosclerosis of other arteries
CPT/HCPCS: 74170; Q9967

== ENCOUNTER → 2018-12-13 | Outpatient (CLI) | payer OTHER ==
[2018-12-13 12:31] LABS: HGB 15.5 gm/dL (13.0-17.5); MCH 32.5 pg (25.0-35.0); MCHC 33.8 g/dL (31.0-37.0); MCV 96.2 fL (80.0-100.0); Mean Platelet Volume 7.5; Platelet Count 218 k/uL (150-450); RBC 4.78 m/uL (4.30-5.90); RDW 13.4 % (11.5-15.5); WBC 6.4 k/uL (3.8-10.6)
[2018-12-13 14:13] LABS: Erythrocyte Sedimentation Rate 2 mm/hr (0-15)
[2018-12-13 16:27] LABS: ALT 41 U/L (10-49); AST 26 U/L (14-35); African American GFR (CKD) 104.1 (60.0-200.0); Albumin/Globulin Ratio 2.88 (1.60-3.17); Alkaline Phosphatase 86 U/L (41-126); C Reactive Protein <0.4 mg/dL (0.0-0.8); Calcium 9.7 mg/dL (8.7-10.3); Carbon Dioxide 27.2 mmol/L (21.6-31.8); Chloride 106 mmol/L (96-109); Globulin 1.6 g/dL (1.6-3.3); Glucose 102 mg/dL (70-110); Potassium 4.3 mmol/L (3.5-5.5); Sodium 141 mmol/L (135-145); Total Bilirubin 0.8 mg/dL (0.3-1.2); Total Protein 6.2 g/dL (6.2-8.2)
== END | disposition home or self-care (01) ==
LOC: LABWHC1 11:42
DX: R10.9 Unspecified abdominal pain (principal)
CPT/HCPCS: 36415; 80053; 83516; 85027; 85652; 86140

== ENCOUNTER → 2018-12-13 | Outpatient (CLI) | payer BC, OTHER ==
--- NOTE | 2018-12-13 16:42 | FL ---
EXAMINATION TYPE: FL UGI air w small bowel DATE OF EXAM: 12/13/2018 COMPARISON: NONE HISTORY: Abdomen pain diffuse, history of ulcers TECHNIQUE: A double air contrast UGI study is performed with small bowel follow through. FINDINGS: Wet Machine Cutter image of the abdomen shows no gross abnormality. Esophagus dilates to normal caliber has normal contour to the gastroesophageal junction. Gastroesopha geal junction opens to normal caliber. No intraluminal or extramural defect is evident. Multiple tert iary and some secondary contractions are evident during the exam compatible with presbyesophagus. Ref lux was evident during this exam. Fundus body and antrum of the stomach are well visualized. No intraluminal or extramural defects are evident. Barium readily empties into the normal-appearing duodenal cap and sweep. Ligament of Treitz is in a normal position. The small bowel study shows normal transit to the colon in less than 60 minutes. There is normal muc osal fold pattern throughout the small bowel. No fold thickening at the left upper quadrant to corre spond to the apparent thickening on CT examination of 10/18/2018 is evident. There is no evidence of a ny stricture or filling defect noted. The terminal ileum is unremarkable. There was some slight tend erness over the terminal ileum during palpation with a rubber balloon. IMPRESSION: 1. Presbyesophagus. 2. Gastroesophageal reflux. 3. Remaining upper GI appears normal. 4. No suspicious abnormality within the small bowel follow-through.
== END | disposition home or self-care (01) ==
LOC: RADFLMAIN 08:33
DX: K22.8 Other specified diseases of esophagus (principal); K21.9 Gastro-esophageal reflux disease without esophagitis
CPT/HCPCS: 74249

== ENCOUNTER → 2018-12-27 | Outpatient (CLI) | payer BC | END | disposition home or self-care (01) | LOC: LABWHC1 11:28 | PROVIDERS: ATTEND Internal Medicine Cardiovascular Disease | DX: E78.2 Mixed hyperlipidemia (principal) | CPT/HCPCS: 36415; 80061; 84450; 84460 ==

== ENCOUNTER 2019-04-04 09:40 | Day surgery (SDC) | payer BC, OTHER ==
[2019-03-31 11:00] VITALS: BMI 30.4
[~2019-04-04 09:40] MED LIST changes: +LACTATED RINGERS 1,000 ML IV SCH; -SODIUM CHLORIDE 0.9% 500 ML 500 ML IV SCH
[2019-04-04 09:56] VITALS: RESP 18; TEMP 97.8
[2019-04-04] MEDS ORDERED: LACTATED RINGERS 1,000 ML IV ONE (09:58)
[2019-04-04] MEDS ORDERED: LIDOCAINE 1% 20 ML VIAL (10MG/ML) FOR IV START INTRADERMA ONE (09:59)
[2019-04-04] MEDS ORDERED: fentaNYL (PF) 50 MCG/ML 2 ML AMP ONE (10:18)
[2019-04-04] MEDS ORDERED: PROPOFOL 10 MG/ML 20 ML VIAL IV ONE (10:18)
[2019-04-04] MEDS ORDERED: MIDAZOLAM 2 MG/2 ML VIAL ONE (10:18)
--- NOTE | 2019-04-04 11:03 | P.PCN ---
Date of Procedure: 04/04/19 Description of Procedure: Brief history: Patient is a pleasant scheduled for an elective upper endoscopy as well as colonoscopy as a part of evaluation of epigastric abdominal pain and change in bowel habits, diarrhea. The patient reports epigastric and diffuse abdominal pain described as tenderness worse with palpation. He also reports diarrhea occurring frequently a few times per week with loose nonbloody bowel movements. No family history of colon cancer. Procedure performed: Esophagogastroduodenoscopy with biopsy Colonoscopy Estimated blood loss: Minimal. Preoperative diagnosis: Epigastric abdominal pain, diarrhea, change in bowel habits Anesthesia: MAC Procedure: After informed consent was obtained from the patient was brought into the endoscopy unit and IV sedation was administered by anesthesia under continuous monitoring. Initially upper endoscopy was done. The Olympus GF 180 video endoscope was inserted inserted into the mouth and esophagus intubated without any difficulty and was gradually advanced into the stomach and duodenum and carefully examined. The bulb and second part of the duodenum appeared normal, biopsied. The scope was then withdrawn into the stomach adequately insufflated with air and upon careful examination the antrum and body, cardia and fundus appeared normal, with scattered punctate erythema in the body and linear erythema in antrum suggestive of mild gastritis with biopsies of antrum and body taken. The scope was then withdrawn into the esophagus. The GE junction was located at 38 cm to the incisors, biopsied. It appeared regular with no erythema erosions or ulcerations. Rest of the esophagus appeared normal. Patient tolerated the procedure well. At this time the patient continued to remain sedation. Initial digital rectal examination was normal. Olympus CF 190 video colonoscope was then inserted into the rectum and gradually advanced to the cecum without any difficulty, with the terminal ileum intubated and appearing normal with random biopsies taken. Careful examination was performed as the scope was gradually being withdrawn. The prep was excellent. The cecum, ascending colon, transverse colon, descending colon, sigmoid colon and rectum appeared normal, with biopsies taken of the right colon and left colon and ascending of altered bowel habits and diarrhea. A diminutive 2 mm sigmoid polyp was removed with cold forceps polypectomy. Retroflexion was performed in the rectum and no lesions were note d. Patient tolerated the procedure well. Impression: 1. Mild gastritis antrum and body, biopsied. Biopsies of the duodenum and GE junction. 2. Normal-appearing colon from rectum to cecum with normal-appearing terminal ileum. Random biopsies of the terminal ileum, right colon and left colon in the setting of altered bowel habits. Diminutive sigmoid polyp removed with cold forceps. Recommendations: Findings of this examination were discussed with the patient as well as his . Okay to resume diet. Okay to resume medications today. Follow-up in gastroenterology clinic in 1-2 weeks for results of biopsies. Repeat colonoscopy in 5-10 years pending pathology from sigmoid polypectomy.
[2019-04-04 11:23] VITALS: BP 110/62; PULSE 59
== END 2019-04-04 11:48 | disposition home or self-care (01) ==
LOC: ORWHC2ENDO 09:40
PROVIDERS: ATTEND Internal Medicine
DX: K63.5 Polyp of colon (principal); K29.50 Unspecified chronic gastritis without bleeding; K31.9 Disease of stomach and duodenum, unspecified; K52.9 Noninfective gastroenteritis and colitis, unspecified; K21.9 Gastro-esophageal reflux disease without esophagitis; I10 Essential (primary) hypertension; I25.10 Atherosclerotic heart disease of native coronary artery without angina pectoris; N28.9 Disorder of kidney and ureter, unspecified; Z95.5 Presence of coronary angioplasty implant and graft; Z87.891 Personal history of nicotine dependence; Z79.02 Long term (current) use of antithrombotics/antiplatelets; Z79.82 Long term (current) use of aspirin; Z79.899 Other long term (current) drug therapy
CPT/HCPCS: 88305; 45380; 43239; J2250; J3010; J2704

== ENCOUNTER 2021-08-17 16:38 | Emergency (ER) | payer BC ==
[2021-08-17 16:46] VITALS: BP 132/82; PULSE 85; RESP 20; TEMP 98.2
[2021-08-17] MEDS ORDERED: PROPARACAINE 0.5% OPHTH DROPS 15 ML BTL BOTH EYES STA (17:55)
[2021-08-17] MEDS ORDERED: FLUORESCEIN STRIPS 1 MG STRIP BOTH EYES ONE (17:55)
[2021-08-17] MEDS ORDERED: ERYTHROMYCIN 5 MG/GM OPHTH OINT 3.5 GM TUBE RIGHT EYE STA (18:21)
[2021-08-17] MEDS ORDERED: DIPH,PERTUS(ACELL)TETVAC-LF 0.5 ML VIAL IM ONE (18:25)
--- NOTE | 2021-08-17 18:30 | ED ---
Eye Problem HPI - General Chief complaint: Eye Problems Stated complaint: foreign body rt eye Time Seen by Provider: 08/17/21 17:54 Source: patient, RN notes reviewed Mode of arrival: ambulatory Limitations: no limitations - History of Present Illness Initial comments: This is a pleasant 51-year-old male who presents complaining of a foreign body to his right eye. Patient states she was working withA car yesterday and had some dust get in his eye. By his degreasing solution mixer today and had the foreign body removed. However patient has a remaining rust ring. Patient was complaining of some irritation to the eye. Mild clear tearing and some injection of the conjunctiva. He denies any other injuries. Patient denies any visual acuity loss. No other complaints. No headache, no fever or chills, no changes in vision or hearing, no sore throat or difficulty with speech, no neck pain, no chest pain or shortness of breath, no abdominal pain, no nausea or vomiting, no changes in urination or bowel movements, no numbness or tingling, no extremity pain, no skin rashes or lesions. MD chief complaint: eye injury - Related Data Home Medications Medication Instructions Recorded Confirmed Pantoprazole [Protonix] 40 mg PO DAILY 09/04/15 03/31/19 Isosorbide Mononitrate ER [Imdur] 30 mg PO DAILY 03/23/18 03/31/19 Aspirin [Adult Low Dose Aspirin EC] 81 mg PO DAILY 03/31/19 03/31/19 Potassium 99 mg PO DAILY 03/31/19 03/31/19 Previous Rx's Medication Instructions Recorded Atorvastatin [Lipitor] 80 mg PO HS #30 tab 07/23/16 Clopidogrel [Plavix] 75 mg PO DAILY #303 tab 07/23/16 Metoprolol Tartrate [Lopressor] 12.5 mg PO BID #60 tab 07/23/16 Nitroglycerin Sl Tabs [Nitrostat] 0.4 mg SUBLINGUAL Q5M PRN #25 tab 07/23/16 lisinopriL [Zestril] 2.5 mg PO DAILY #30 tab 07/23/16 Allergies Allergy/AdvReac Type Severity Reaction Status Date / Time No Known Allergies Allergy Verified 08/17/21 16:47 Review of Systems ROS Statement: Those systems with pertinent positive or pertinent negative responses have been documented in the HPI. ROS Other: All systems not noted in ROS Statement are negative. Past Medical History Past Medical History: Coronary Artery Disease (CAD), Hyperlipidemia, Hypertension, Myocardial Infarction (CO), Rheumatoid Arthritis (RA) Additional Past Medical History / Comment(s): PEPTIC ULCERS Has partially torn meniscus in both knees. current abdominal pain Last Myocardial Infarction Date:: 03/03/15 History of Any Multi-Drug Resistant Organisms: None Reported Past Surgical History: Heart Catheterization With Stent Additional Past Surgical History / Comment(s): pt has 7 stents involving the RCA, remus intermedius and circ. Past Anesthesia/Blood Transfusion Reactions: No Reported Reaction Date of Last Stent Placement:: 07/22/16 Past Psychological History: No Psychological Hx Reported Smoking Status: Never smoker Past Alcohol Use History: Occasional Past Drug Use History: None Reported - Past Family History Sister(s) Family Medical History: Cancer Father History Unknown: Yes Family Medical History: Coronary Artery Disease (CAD) Additional Family Medical History / Comment(s): CO AT AGE 27 Mother Family Medical History: Diabetes Mellitus General Exam - General Exam Comments Initial Comments: 51-year-old male no distress. Patient does not appear to be ill or toxic Limitations: no limitations General appearance: alert, in no apparent distress Head exam: Present: atraumatic, normocephalic, normal inspection Eye exam: Present: normal appearance, PERRL, EOMI, conjunctival injection (Right eye), other (Superficial rust ring noted to the cornea of the right eye. No other foreign bodies noted. Lids were everted.). Absent: scleral icterus, periorbital swelling Pupils: Present: normal accommodation, other (Visual acuity is normal) Expanded Eyelids: Normal Inspection: Bilateral Pupils: Regular, Round: Bilateral Sclera/Conjunctival: Injection: Right, Foreign Body: Right (Rust ring only overlying the cornea with overlying ecchymosis.) Anterior chamber: Normal Inspection: Bilateral Course Vital Signs 08/17/21 16:43 Temperature 98.2 F Pulse Rate 85 Respiratory 20 Rate Blood Pressure 132/82 O2 Sat by Pulse 100 Oximetry Medical Decision Making - Medical Decision Making No headache, no fever or chills, no changes in vision or hearing, no sore throat or difficulty with speech, no neck pain, no chest pain or shortness of breath, no abdominal pain, no nausea or vomiting, no changes in urination or bowel movements, no numbness or tingling, no extremity pain, no skin rashes or lesions. No headache, no fever or chills, no changes in vision or hearing, no sore throat or difficulty with speech, no neck pain, no chest pain or shortness of breath, no abdominal pain, no nausea or vomiting, no changes in urination or bowel movements, no numbness or tingling, no extremity pain, no skin rashes or lesions. Disposition Clinical Impression: Foreign body of right eye Disposition: HOME SELF-CARE Condition: Stable Instructions (If sedation given, give patient instructions): Eye Foreign Body (ED) Additional Instructions: Erythromycin ointment 1 cm to the affected eye every 6 hours until follow-up with the insole cementer. Follow-up with the insole cementer as directed. Follow-up with your regular physician as directed. Return to the ER immediately if any symptoms worsen, new symptoms arise, or any other problems develop. Is patient prescribed a controlled substance at d/c from ED?: No Referrals: Giselle Reynoso MD [STAFF PHYSICIAN] - 1-2 days Time of Disposition: 18:58
== END 2021-08-17 19:10 | disposition home or self-care (01) ==
LOC: EC 16:38
DX: T15.01XA Foreign body in cornea, right eye, initial encounter (principal); I10 Essential (primary) hypertension; I25.2 Old myocardial infarction; Y92.810 Car as the place of occurrence of the external cause
CPT/HCPCS: 90471; 90715; 99283

== ENCOUNTER → 2022-03-21 | Outpatient (CLI) | payer BC ==
[2022-03-21 16:22] LABS: ALT 39 U/L (10-49); AST 25 U/L (14-35)
[2022-03-21 16:23] LABS: Chol/HDL Ratio 2.61 Ratio; LDL Cholesterol,Calculated 55.4 mg/dL (0.0-131.0); VLDL Calculation 14.32 mg/dL (5.00-40.00)
== END | disposition home or self-care (01) ==
LOC: LABWHC1 08:47
PROVIDERS: ATTEND Internal Medicine Cardiovascular Disease
DX: E78.2 Mixed hyperlipidemia (principal)
CPT/HCPCS: 36415; 80061; 84450; 84460

== ENCOUNTER → 2023-08-18 | Outpatient (CLI) | payer BC ==
[2023-08-18 20:02] LABS: HCT 48.6 % (39.6-50.0); HGB 16.8 g/dL (13.0-17.0); MCH 33.1 pg (27.0-32.0); MCHC 34.6 g/dL (32.0-37.0); MCV 95.7 FL (80.0-97.0); Mean Platelet Volume 10.5 FL (9.5-12.2); NRBC Per 100 WBC 0 X 10*3/uL (0.00-0.01); Platelet Count 230 X 10*3/uL (140-440); RBC 5.08 X 10*6/uL (4.40-5.60); WBC 6.26 X 10*3/uL (4.50-10.00)
[2023-08-18 20:35] LABS: Blood Urea Nitrogen 16.4 mg/dL (9.0-27.0); Calcium 10.2 mg/dL (8.7-10.3); Carbon Dioxide 26.2 mmol/L (21.6-31.8); Chloride 101 mmol/L (96-109); Glucose 101 mg/dL (70-110); Potassium 4.4 mmol/L (3.5-5.5); Sodium 138 mmol/L (135-145)
== END | disposition home or self-care (01) ==
LOC: LABWHC1 13:47
PROVIDERS: ATTEND Internal Medicine Cardiovascular Disease
DX: R06.02 Shortness of breath (principal)
CPT/HCPCS: 36415; 80048; 85027